=== PATIENT | male | born 1935 | race Caucasian/White ===

== ENCOUNTER 2017-08-10 18:59 | Inpatient (IN) | payer MEDICARE ==
[~2017-08-10] VITALS: Ht 180.3 cm; Wt 59.9 kg
[2017-08-10] MEDS ORDERED: IV NORMAL SALINE 1,000ML 1,000 ML IV SCH (19:40)
[2017-08-10] MEDS ORDERED: IBUPROFEN 600 MG TABLET. PO ONE (19:45)
[2017-08-10] MEDS ORDERED: IV NORMAL SALINE 1,000ML 1,000 ML IV ONE (19:45)
[2017-08-10] MEDS ORDERED: PRED2.5T PO (19:49)
[2017-08-10] MEDS ORDERED: FOSI10TA PO (19:49)
[2017-08-10] MEDS ORDERED: METO25TA4 PO (19:49)
[2017-08-10] MEDS ORDERED: FLUT1DIS3 IH (19:49)
[2017-08-10] MEDS ORDERED: TAMS0.4C2 PO (19:49)
[2017-08-10] MEDS ORDERED: OMEP20CA9 PO (19:49)
[2017-08-10] MEDS ORDERED: SIMV10TA3 PO (19:49)
[2017-08-10] MEDS ORDERED: GABA-585 PO (19:49)
[2017-08-10] MEDS ORDERED: BICA50TA4 PO (19:49)
[2017-08-10] MEDS ORDERED: CETI10TA16 PO (19:49)
[2017-08-10] MEDS ORDERED: VANCOMYCIN PER PHARMACY MC PRN (20:15)
[2017-08-10] MEDS ORDERED: CEFEPIME HCL 1 GM in IV NORMAL SALINE 50ML 50 ML IV ONE (20:30)
[2017-08-10 20:42] LABS: BASO % 2 % (0-3); EOS % 2 % (0-3); HEMATOCRIT 28.2 % (39.0-53.0); HEMOGLOBIN 9.4 g/dL (13.0-17.5); LYMPH # 0.4 x10^3/uL (1.0-4.8); LYMPH % 47 % (24-48); MEAN CORPUSCULAR HEMOGLOBIN 31 pg (25-35); MEAN CORPUSCULAR HGB CONC 33 g/dL (31-37); MEAN CORPUSCULAR VOLUME 94 fL (79-100); MONO # 0.3 x10^3/uL (0.0-1.1); MONO % 34 % (0-9); NEUT # 0.1 x10^3uL (1.8-7.7); NEUT % 16 % (31-73); PLATELET COUNT 160 x10^3/uL (140-400); RED BLOOD COUNT 3.01 x10^6/uL (4.30-5.70); RED CELL DISTRIBUTION WIDTH 16.8 % (11.5-14.5)
[2017-08-10 21:00] LABS: WHITE BLOOD COUNT 0.8 x10^3/uL (4.0-11.0)
[2017-08-10] MEDS ORDERED: VANCOMYCIN 1.5 GM in IV NORMAL SALINE 500ML 500 ML IV ONE (21:00)
[2017-08-10] MEDS ORDERED: IV NORMAL SALINE 50ML 50 ML ONE (21:01)
[2017-08-10] MEDS ORDERED: CEFEPIME HCL 1 GM VIAL ONE (21:01)
[2017-08-10 21:04] LABS: ALBUMIN 2.2 g/dL (3.4-5.0); ALBUMIN/GLOBULIN RATIO 0.6 (1.0-1.7); CALCIUM 8.3 mg/dL (8.5-10.1); CREATININE 1.8 mg/dL (0.7-1.3); GFR 36.4; POTASSIUM 4.5 mmol/L (3.5-5.1); TOTAL BILIRUBIN 0.4 mg/dL (0.2-1.0); TOTAL PROTEIN 5.8 g/dL (6.4-8.2)
[2017-08-10] MEDS ORDERED: ACETAMINOPHEN 325 MG TABLET PO PRN (21:45)
[2017-08-10] MEDS ORDERED: ONDANSETRON PF 4 MG/2 ML VIAL. IV PRN (21:45)
[2017-08-10] MEDS: IV NORMAL SALINE 1,000ML 1,000 ML IV SCH (21:52)
[2017-08-10 22:16] LABS: BILIRUBIN,URINE NEG (NEG); CLARITY,URINE HAZY; COLOR,URINE YELLOW; GLUCOSE,URINE NEG (NEG)
[2017-08-10 22:17] LABS: BACTERIA,URINE MANY /HPF (0-FEW); NITRITE,URINE NEG (NEG); RBC,URINE RARE /HPF (0-2); SQUAMOUS EPITHELIAL CELL,UR FEW /LPF; UROBILINOGEN,URINE 0.2 mg/dL (0.2 mg/dL)
[2017-08-10 22:19] LABS: AMORPHOUS SEDIMENT,UR PRESENT /HPF
--- NOTE | 2017-08-10 22:31 | EKG ---
[address] [address] Test Date: 2017-08-10 Test Time: 19:49:17 Pat Name: SUGEY HERNANDEZ Department: Room: Gender: M Coremaker Bench: MATTHEW : 1935 Requested By: OMAR OCHOA Order Number: [id number] Reading MD: Measurements Intervals [place] Rate: 101 P: 44 MT: 204 QRS: 54 QRSD: 98 T: 46 QT: 310 QTc: 403 Interpretive Statements SINUS TACHYCARDIA PROLONGED MT INTERVAL QRS(T) CONTOUR ABNORMALITY CONSISTENT WITH INFERIOR INFARCT PROBABLY OLD ABNORMAL ECG RI6.01 No previous ECG available for comparison
[2017-08-10 23:32] LABS: % BANDS 2 % (0-9); % LYMPHS 78 % (24-48); % METAS 2 % (0-0); % MONOS 5 % (0-10); % SEGS 13 % (35-66); NUCLEATED RBC 1
[2017-08-10 23:33] LABS: PLT ESTIMATE ADEQUATE (ADEQUATE)
[2017-08-11] VITALS (7 sets, daily range): BP systolic 88–156; BP diastolic 52–86
[2017-08-11] MEDS ORDERED: PRED5TAB PO (01:18)
--- NOTE | 2017-08-11 03:51 | PHYS DOC ---
Past History Past Medical History: Cancer, COPD, GERD, High Cholesterol, Hypertension Past Surgical History: Other Alcohol Use: None Drug Use: None Adult General Chief Complaint Chief Complaint: FEVER HPI HPI He 2-year-old male with a history of hypertension, COPD, high cholesterol and prostate cancer with multiple bony metastases now presents to the emergency department complaining of fever. Patient has had recent chemotherapy. He was told by his oncologist to get evaluated if he ever got a fever. Patient had onset of fevers earlier today with chills. No nausea or vomiting. Denies chest pain or shortness of breath. No productive cough. Denies abdominal pain. Normal bowel and bladder habits. [place] Review of Systems Review of Systems Constitutional: Denies fever or chills [] Eyes: Denies change in visual acuity, redness, or eye pain [] HENT: Denies nasal congestion or sore throat [] Respiratory: Denies cough or shortness of breath [] Cardiovascular: No additional information not addressed in HPI [] GI: Denies abdominal pain, nausea, vomiting, bloody stools or diarrhea [] : Denies dysuria or hematuria [] Musculoskeletal: Denies back pain or joint pain [] Integument: Denies rash or skin lesions [] Neurologic: Denies headache, focal weakness or sensory changes [] Endocrine: Denies polyuria or polydipsia [] All other systems were reviewed and found to be within normal limits, except as documented in this note. Current Medications Current Medications Current Medications Medications (Trade) Dose Ordered Sig/Caridad Start Time Stop Time Status Last Admin Dose Admin Cefepime HCl (Maxipime) 1 gm STK-MED ONCE 08/10/17 21:01 08/10/17 21:02 DC Cefepime HCl 1 gm/ Sodium Chloride 50 ml @ 100 mls/hr 1X ONCE 08/10/17 20:30 08/10/17 20:59 DC 08/10/17 20:30 100 MLS/HR Ibuprofen (Motrin) 600 mg 1X ONCE 08/10/17 19:45 08/10/17 19:46 DC 08/10/17 20:08 600 MG Sodium Chloride 1,000 ml @ 125 mls/hr Q8H 08/10/17 21:34 08/11/17 21:33 08/10/17 21:52 125 MLS/HR Vancomycin HCl (Vanco Per Pharmacy) 1 each PRN DAILY PRN 08/10/17 20:15 08/10/17 23:40 1 EACH Vancomycin HCl 1.5 gm/Sodium Chloride 500 ml @ 250 mls/hr 1X ONCE 08/10/17 21:00 08/10/17 22:59 DC 08/10/17 21:15 250 MLS/HR Allergies Allergies Allergies Coded Allergies Type Severity Reaction Last Updated Verified Penicillins Allergy Unknown 08/10/17 Yes Sulfa (Sulfonamide Antibiotics) Allergy Unknown 08/10/17 Yes morphine Allergy Unknown 08/10/17 Yes Physical Exam Physical Exam Chronically weak appearing elderly gentleman alert communicative cooperative and appropriate in no acute distress. Mucous membranes mildly dry. Supple neck clear lungs regular rate and rhythm mild tachycardia on arrival resolved after IV fluids. Benign abdomen no CVA tenderness normal extremities and a nonfocal neurologic exam Constitutional: Well developed, well nourished, no acute distress, non-toxic appearance. [] HENT: Normocephalic, atraumatic, bilateral external ears normal, oropharynx moist, no oral exudates, nose normal. [] Eyes: PERRLA, EOMI, conjunctiva normal, no discharge. [] Neck: Normal range of motion, no tenderness, supple, no stridor. [] Cardiovascular:Heart rate regular rhythm, no murmur [] Lungs & Thorax: Bilateral breath sounds clear to auscultation [] Abdomen: Bowel sounds normal, soft, no tenderness, no masses, no pulsatile masses. [] Skin: Warm, dry, no erythema, no rash. [] Back: No tenderness, no CVA tenderness. [] Extremities: No tenderness, no cyanosis, no clubbing, ROM intact, no edema. [] Neurologic: Alert and oriented X 3, normal motor function, normal sensory function, no focal deficits noted. [] Psychologic: Affect normal, judgement normal, mood normal. [] Current Patient Data Vital Signs Vital Signs Date Time Temp Pulse Resp B/P (MAP) Pulse Ox O2 Delivery O2 Flow Rate FiO2 08/11/17 00:15 97.8 69 20 99/64 (76) 96 Room Air Lab Results Laboratory Tests Test 08/10/17 19:58 08/10/17 21:11 08/10/17 23:40 08/11/17 02:00 White Blood Count 0.8 x10^3/uL (4.0-11.0) *L Red Blood Count 3.01 x10^6/uL (4.30-5.70) L Hemoglobin 9.4 g/dL (13.0-17.5) L Hematocrit 28.2 % (39.0-53.0) L Mean Corpuscular Volume 94 fL (79-100) Mean Corpuscular Hemoglobin 31 pg (25-35) Mean Corpuscular Hemoglobin Concent 33 g/dL (31-37) Red Cell Distribution Width 16.8 % (11.5-14.5) H Platelet Count 160 x10^3/uL (140-400) Neutrophils (%) (Auto) 16 % (31-73) L Lymphocytes (%) (Auto) 47 % (24-48) Monocytes (%) (Auto) 34 % (0-9) H Eosinophils (%) (Auto) 2 % (0-3) Basophils (%) (Auto) 2 % (0-3) Neutrophils # (Auto) 0.1 x10^3uL (1.8-7.7) L Lymphocytes # (Auto) 0.4 x10^3/uL (1.0-4.8) L Monocytes # (Auto) 0.3 x10^3/uL (0.0-1.1) Eosinophils # (Auto) 0.0 x10^3/uL (0.0-0.7) Basophils # (Auto) 0.0 x10^3/uL (0.0-0.2) Segmented Neutrophils % 13 % (35-66) L Band Neutrophils % 2 % (0-9) Lymphocytes % 78 % (24-48) H Monocytes % 5 % (0-10) Metamyelocytes % 2 % (0-0) H Nucleated Red Blood Cells 1 Platelet Estimate Adequate (ADEQUATE) Sodium Level 136 mmol/L (136-145) Potassium Level 4.5 mmol/L (3.5-5.1) Chloride Level 104 mmol/L (98-107) Carbon Dioxide Level 19 mmol/L (21-32) L Anion Gap 13 (6-14) Blood Urea Nitrogen 43 mg/dL (8-26) H Creatinine 1.8 mg/dL (0.7-1.3) H Estimated GFR (Cockcroft-Gault) 36.4 BUN/Creatinine Ratio 24 (6-20) H Glucose Level 121 mg/dL (70-99) H Lactic Acid Level 1.4 mmol/L (0.4-2.0) 0.5 mmol/L (0.4-2.0) Calcium Level 8.3 mg/dL (8.5-10.1) L Total Bilirubin 0.4 mg/dL (0.2-1.0) Aspartate Amino Transferase (AST) 25 U/L (15-37) Alanine Aminotransferase (ALT) 46 U/L (16-63) Alkaline Phosphatase 118 U/L (46-116) H Troponin I Quantitative < 0.017 ng/mL (0-0.055) < 0.017 ng/mL (0-0.055) Total Protein 5.8 g/dL (6.4-8.2) L Albumin 2.2 g/dL (3.4-5.0) L Albumin/Globulin Ratio 0.6 (1.0-1.7) L Urine Collection Type Unknown Urine Color Yellow Urine Clarity Hazy Urine pH 5.0 Urine Specific [place] 1.020 Urine Protein 30 mg/dl (NEG-TRACE) Urine Glucose (UA) Neg mg/dL (NEG) Urine Ketones (Stick) Neg mg/dL (NEG) Urine Blood Trace (NEG) Urine Nitrite Neg (NEG) Urine Bilirubin Neg (NEG) Urine Urobilinogen Dipstick 0.2 mg/dL (0.2 mg/dL) Urine Leukocyte Esterase Small (NEG) Urine RBC Rare /HPF (0-2) Urine WBC 5-10 /HPF (0-4) Urine Squamous Epithelial Cells Few /LPF Urine Amorphous Sediment Present /HPF Urine Bacteria Many /HPF (0-FEW) Urine Mucus Mod /LPF EKG EKG Normal sinus tachycardia at 101, normal axis, no STEMI, interpreted by me[] Radiology/Procedures Radiology/Procedures Chest x-ray with chronic changes no infiltrate or effusion interpreted by me[] Course & Med Decision Making Course & Med Decision Making Pertinent Labs and Imaging studies reviewed. (See chart for details) Elderly patient on chemotherapy now with fevers. Blood cultures drawn and antibiotic coverage initiated for fever of unknown cause anticipating the possibility of neutropenic fever. No clinical evidence of focal infection. Labs confirm patient with leukopenia and neutropenia. His clinically dehydrated and labs reflect prerenal azotemia with BUN/creatinine 43 and 1.8. IV fluid bolus administered. Case discussed with Dr. Mcnair hospitalist on-call is aware of history and findings and agrees with inpatient admission to his service. [] Dragon Disclaimer Dragon Disclaimer This electronic medical record was generated, in whole or in part, using a voice recognition dictation system. Departure Departure: Impression: Primary Impression: Neutropenic fever Additional Impressions: Dehydration Systemic inflammatory response syndrome (SIRS) Sepsis Leukopenia Disposition: ADMITTED INPATIENT Admitting Physician: Gely Mcnair Condition: STABLE Problem Qualifiers OMAR OCHOA MD August 11, 2017 03:51
[2017-08-11] MEDS: IV NORMAL SALINE 1,000ML 1,000 ML IV SCH ×2 (05:34→08:25)
[2017-08-11 08:07] LABS: BASO % 3 % (0-3); EOS % 3 % (0-3); HEMATOCRIT 31.9 % (39.0-53.0); HEMOGLOBIN 10.7 g/dL (13.0-17.5); LYMPH # 0.3 x10^3/uL (1.0-4.8); LYMPH % 42 % (24-48); MEAN CORPUSCULAR HEMOGLOBIN 32 pg (25-35); MEAN CORPUSCULAR HGB CONC 34 g/dL (31-37); MEAN CORPUSCULAR VOLUME 94 fL (79-100); MONO # 0.2 x10^3/uL (0.0-1.1); MONO % 29 % (0-9); NEUT # 0.1 x10^3uL (1.8-7.7); NEUT % 24 % (31-73); PLATELET COUNT 184 x10^3/uL (140-400); RED BLOOD COUNT 3.39 x10^6/uL (4.30-5.70); RED CELL DISTRIBUTION WIDTH 17.2 % (11.5-14.5)
[2017-08-11 08:10] LABS: WHITE BLOOD COUNT 0.6 x10^3/uL (4.0-11.0)
[2017-08-11 08:11] LABS: ALBUMIN 2.3 g/dL (3.4-5.0); ALBUMIN/GLOBULIN RATIO 0.6 (1.0-1.7); CALCIUM 8.6 mg/dL (8.5-10.1); CREATININE 1.7 mg/dL (0.7-1.3); GFR 38.9; POTASSIUM 4.3 mmol/L (3.5-5.1); TOTAL BILIRUBIN 0.4 mg/dL (0.2-1.0); TOTAL PROTEIN 6.1 g/dL (6.4-8.2)
[2017-08-11] MEDS: CEFEPIME HCL 1 GM in IV NORMAL SALINE 50ML 50 ML IV SCH ×2 (08:22→19:50)
[2017-08-11] MEDS ORDERED: NON FORMULARY ITEM (Fluticasone/Salmeterol (Advair 250-50 Diskus) 1 PUFF) IH SCH (09:00)
[2017-08-11] MEDS ORDERED: LISINOPRIL 10 MG TABLET PO SCH (09:00)
[2017-08-11] MEDS ORDERED: BICALUTAMIDE 50 MG TABLET PO SCH (09:00)
[2017-08-11] MEDS ORDERED: BUDESONIDE 0.5 MG/2 ML NEBU ONE (09:32)
[2017-08-11] MEDS ORDERED: ALBUTEROL SULFATE 2.5 MG/3 ML NEBU. ONE (09:32)
[2017-08-11] MEDS: predniSONE 5 MG TABLET PO SCH (09:43)
[2017-08-11] MEDS: PANTOPRAZOLE 40 MG TABLET. PO SCH (09:43)
[2017-08-11] MEDS: CETIRIZINE HCL 10 MG TABLET PO SCH (09:44)
[2017-08-11] MEDS: METOPROLOL TART IMMED RELEASE 25 MG TABLET PO SCH ×2 (09:44→21:58)
[2017-08-11] MEDS: GABAPENTIN 100 MG CAPSULE. PO SCH ×3 (09:44→21:56)
[2017-08-11] MEDS: ALBUTEROL SULFATE 2.5 MG/3 ML NEBU. NEB SCH ×3 (09:57→20:00)
--- NOTE | 2017-08-11 14:53 | RAD ---
Single view chest 08/10/2017 Clinical indication: Shortness of breath and chest pain. COMPARISON: None. FINDINGS: This is the 1st time the exam is being presented for interpretation. Right subclavian chest port with distal tip overlying the mid SVC level. Cardiac and mediastinal silhouettes are unremarkable. No pleural effusion, pneumothorax or focal consolidation. IMPRESSION: No acute cardiopulmonary abnormality. Electronically signed by: Star Nicholas MD (08/11/2017 2:49 PM) [id number]
--- NOTE | 2017-08-11 18:11 | HP ---
ADMIT DATE: HISTORY OF PRESENT ILLNESS: The patient is an 82-year-old male patient with a past medical history significant for hypertension, COPD, hyperlipidemia and prostate cancer with multiple bony metastases, who presented to the Emergency Room of [facility] yesterday with a complaint of fever. Has had recent chemotherapy and he was told by his oncologist to get evaluated if he ever got the fever. The patient had onset of fever yesterday. He also complained of weakness and hypertension. His daughter is a pharmacist, and she has been adjusting his blood pressure medication, but continued to be low. They contacted his oncologist, Dr. Christ Garcia, who recommended to start him on Neupogen and also hydrocortisone as he was on prednisone before. The patient did have fever up to 101 with chills. No nausea or vomiting. Denied any chest pain or shortness of breath, cough or phlegm. Denied any abdominal pain. Denied any diarrhea or constipation. Denied any dysuria, frequency or hematuria. He is actually visiting from out of the [facility]. He and his are living in [place], coming to visit their daughter. PAST MEDICAL HISTORY: Significant for hypertension, hyperlipidemia, previous episode of TIA, COPD, nephrolithiasis, treated with extracorporeal lithotripsy and also a cystoscopy and retrograde pyelography and stent deployment. Prostate cancer metastasized to the sternum and other bones for which he was on Lupron and Casodex and Taxotere. 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 PAST SURGICAL HISTORY: Significant for tonsillectomy, Whipple's procedure, laminectomy and also has had colonoscopy. ALLERGIES: HE IS ALLERGIC TO PENICILLIN, SULFA DRUGS AND MORPHINE. MEDICATIONS: He is currently on following medications: He is on cetirizine 10 mg once a day, bicalutamide 50 mg once a day, Flomax 0.4 mg at bedtime, simvastatin 10 mg at bedtime, metoprolol tartrate 25 mg twice a day, fosinopril 10 mg once a day, gabapentin 200 mg 3 times a day, fluticasone/Advair Diskus 250/50 one puff twice a day, omeprazole 20 mg once a day and prednisone 5 mg daily. FAMILY HISTORY: He has one sister older, now has dementia and lives with her family in [place]. His father of Alzheimer disease and mother of lung cancer. SOCIAL HISTORY: He is , has 3 daughters. He is an ex-smoker, quit in 1982. 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 REVIEW OF SYSTEMS: The patient denied any blurring of vision, cataract, glaucoma or macular degeneration. Denied any earache, tinnitus or sensorineural deafness. He has bilateral hearing aid. Denied any nosebleeds, stuffy nose or postnasal drip. Denied any sore throat, sore tongue, toothache, hoarseness of voice. Denied any difficulty swallowing. Denied any nausea, vomiting, diarrhea or constipation. Did complain of weight loss of about 35 pounds since last fall. Denied any hematemesis, melena or hematochezia. Denied any dysuria, frequency, hematuria. Denied any chest pain, shortness of breath, orthopnea, paroxysmal nocturnal dyspnea. Denied any cough, phlegm or hemoptysis. He did complain of chills, but no rigors. Did complain of weakness and dizziness. Has hypertension and also fever and generalized weakness. PHYSICAL EXAMINATION: GENERAL: On arrival to the Emergency Room, he was pale, but no jaundice, cyanosis, or thyromegaly. No jugular venous distention. No limb edema. VITAL SIGNS: His heart rate was 118, blood pressure was 96/60, temperature was 97.8, respiratory rate 20, and oxygen saturation was 96%. HEAD, EYES, EARS, NOSE AND THROAT: Showed normocephalic, atraumatic. NECK: Supple. HEART: Showed normal first and second heart sounds with no gallop, rub or murmur. CHEST: Clear to auscultation. No crepitation or rhonchi. ABDOMEN: Distended, soft, nontender. No guarding or rigidity. No organomegaly. All hernial orifices intact. Bowel sounds normal. NEUROLOGIC: He is awake. He is very hard of hearing. Otherwise, all cranial nerves intact. EXTREMITIES: He moves extremities without difficulty. He apparently has multiple pressure ulcers for which he was evaluated by our wound care team. LABORATORY DATA: On arrival showed a total white cell count of 800, hemoglobin 9.4, hematocrit 28, MCV 94 and platelet count of 160,000. His chemistry showed a serum sodium 136, potassium 4.5, chloride 104, bicarbonate 19, anion gap of 13, BUN 43, creatinine 1.8, estimated GFR was 36 mL per minute. His glucose 121, calcium was 8.3. Total bilirubin, AST, ALT were normal. Alkaline phosphatase slightly elevated. Total protein was 5.8, albumin 2.2. His lactic acid was only 1.4. Has 3 sets of cardiac enzymes that were negative. His urinalysis showed the urine was yellow, hazy with a pH of 5, specific gravity of 1.020, urine protein was 30 mg/dL. The urine was negative for glucose and ketones, there was trace of blood, negative for nitrites, small leukocyte esterase, 5-10 wbc's, rare rbc's and many bacteria. His chest x-ray showed, this is the first time the exam is being presented for interpretation, he has right subclavian chest port with distal tip overlying the mid superior vena cava level. Cardiac and mediastinal silhouette are unremarkable. No pleural effusion, pneumothorax or focal consolidation, and basically has no acute cardiopulmonary abnormality. ASSESSMENT AND PLAN: In summary, this is an 82-year-old male patient who presented to the Emergency Room with febrile neutropenia. We started him on IV antibiotic, IV fluid. He is now on vancomycin as well as cefepime and will continue. Has had blood cultures, the results are still pending at time of dictation. His oncologist recommended starting him on Neupogen 300 mcg and also hydrocortisone 100 mg. I will hold his antihypertensive medication for now, continue with IV fluid, and will decide the further management accordingly. OSCAR MOSS MD DR: JANELLE/rene JOB#: [id number] / [id number]
[2017-08-11] MEDS: BUDESONIDE 0.5 MG/2 ML NEBU NEB SCH (21:05)
[2017-08-11] MEDS: TAMSULOSIN 0.4 MG CAP.ER.24H. PO SCH (21:56)
[2017-08-11] MEDS: SIMVASTATIN 10 MG TABLET PO SCH (21:56)
[2017-08-11] MEDS: VANCOMYCIN 1 GM in IV NORMAL SALINE 250ML 250 ML IV SCH (21:56)
[2017-08-11] MEDS: HYDROCORTISONE SOD SUCC/PF 100 MG/2 ML VIAL. IV SCH (22:13)
[2017-08-11] MEDS: TBO-FILGRASTIM 300 MCG/0.5 ML SYRINGE. SQ SCH (22:30)
--- NOTE | 2017-08-12 00:24 | PN ---
DATE: 08/11/2017 SUBJECTIVE: The patient is resting slightly propped up in bed, in no apparent respiratory distress, very hard of hearing, but otherwise he denied any complaint. He said that he is unsteady on his feet. He has lost about 35 pounds since last fall and was diagnosed with metastatic prostate cancer treated initially with Lupron, Casodex, and Taxotere. His last chemotherapy was on 08/01/2017, next scheduled chemotherapy was on 08/22/2017. PHYSICAL EXAMINATION: GENERAL: When I examined him this afternoon, he looked well and was clearly in no apparent respiratory distress, pale, but no jaundice, cyanosis, or thyromegaly. No jugular venous distention. No limb edema. VITAL SIGNS: Heart rate was 63, blood pressure 156/86, temperature was 97.8, respiratory rate was 16, and oxygen saturation was 93%. HEAD, EYES, EARS, NOSE AND THROAT: Normocephalic, atraumatic. NECK: Supple. HEART: Showed no first and second heart sounds. No gallop, rub or murmur. CHEST: Clear to auscultation. No crepitation or rhonchi. ABDOMEN: Distended, soft, and nontender. No guarding or rigidity and no organomegaly. Hernial orifices intact. Bowel sounds normal. NEUROLOGIC: He is hard of hearing. Otherwise, her cranial nerves are intact. He moves extremities without difficulty. He ambulates without assistance or assistive devices. He actually used to walk with a cane, but now he uses a walker and he is steady on his feet that way. His intake over the last 24 hours was incompletely recorded. LABORATORY DATA: This morning showed his serum sodium was 140, potassium 4.3, chloride 109, bicarbonate 21, anion gap of 10, BUN 39, creatinine 1.7, estimated GFR was 39 mL per minute, his glucose 100, calcium was 8.6. Total bilirubin, AST, ALT were normal. Alkaline phosphatase slightly elevated. Total protein was 6.1, albumin was 2.3. His white cell count has dropped down further to 600, hemoglobin was 10.7, hematocrit 31.9, MCV 94, and platelet count of 184,000. ASSESSMENT: 1. Febrile neutropenia. 2. Prostate cancer, status post chemotherapy, the last chemotherapy received on 08/01/2017. 3. Other medical problems include hypertension. The patient normally is hypertensive and he is on metoprolol and lisinopril. Other medical problems include hyperlipidemia, chronic obstructive pulmonary disease. As per his oncologist's recommendation, we will start him on Granix 300 mcg subcutaneous once tonight and hydrocortisone 100 mg intravenous. We will continue with intravenous antibiotic as per pharmacy adjustment given his abnormal kidney function and we will repeat all his lab work tomorrow. I will contact Dr. Vick and decide to see if they have any other recommendation. OSCAR MOSS MD DR: JANELLE/rene JOB#: [id number] / [id number]
[2017-08-12] MEDS: ALBUTEROL SULFATE 2.5 MG/3 ML NEBU. NEB SCH ×4 (05:42→20:00)
[2017-08-12 05:49] VITALS: BP 93/58
[2017-08-12] MEDS: HYDROCORTISONE SOD SUCC/PF 100 MG/2 ML VIAL. IV SCH ×2 (06:40→14:11)
[2017-08-12 06:43] LABS: BASO % 1 % (0-3); EOS % 0 % (0-3); HEMATOCRIT 27.5 % (39.0-53.0); HEMOGLOBIN 9.1 g/dL (13.0-17.5); LYMPH # 0.6 x10^3/uL (1.0-4.8); LYMPH % 20 % (24-48); MEAN CORPUSCULAR HEMOGLOBIN 32 pg (25-35); MEAN CORPUSCULAR HGB CONC 33 g/dL (31-37); MEAN CORPUSCULAR VOLUME 95 fL (79-100); MONO # 0.8 x10^3/uL (0.0-1.1); MONO % 30 % (0-9); NEUT # 1.4 x10^3uL (1.8-7.7); NEUT % 49 % (31-73); PLATELET COUNT 169 x10^3/uL (140-400); RED BLOOD COUNT 2.88 x10^6/uL (4.30-5.70); RED CELL DISTRIBUTION WIDTH 17.4 % (11.5-14.5); WHITE BLOOD COUNT 2.8 x10^3/uL (4.0-11.0)
[2017-08-12 06:55] LABS: ALBUMIN/GLOBULIN RATIO 0.6 (1.0-1.7); CALCIUM 8.8 mg/dL (8.5-10.1); CREATININE 1.6 mg/dL (0.7-1.3); GFR 41.7; POTASSIUM 3.6 mmol/L (3.5-5.1); TOTAL BILIRUBIN 0.3 mg/dL (0.2-1.0); TOTAL PROTEIN 5.6 g/dL (6.4-8.2)
[2017-08-12] MEDS: IV NORMAL SALINE 1,000ML 1,000 ML IV SCH ×2 (08:32→17:04)
[2017-08-12] MEDS: CEFEPIME HCL 1 GM in IV NORMAL SALINE 50ML 50 ML IV SCH ×2 (08:32→21:13)
[2017-08-12] MEDS: CETIRIZINE HCL 10 MG TABLET PO SCH (08:35)
[2017-08-12] MEDS: GABAPENTIN 100 MG CAPSULE. PO SCH ×3 (08:35→21:16)
[2017-08-12] MEDS: PANTOPRAZOLE 40 MG TABLET. PO SCH (08:36)
[2017-08-12] MEDS: predniSONE 5 MG TABLET PO SCH (08:36)
[2017-08-12 09:38] LABS: % BANDS 12 % (0-9); % BASOS 2 % (0-3); % LYMPHS 31 % (24-48); % METAS 5 % (0-0); % MONOS 12 % (0-10); % MYELOS 3 % (0-0); % OTHERS 21 % (0-0); % PROS 1 % (0-0); % SEGS 12 % (35-66); NUCLEATED RBC 2
[2017-08-12 09:39] LABS: PLT ESTIMATE ADEQUATE (ADEQUATE)
[2017-08-12 09:40] LABS: ANISOCYTOSIS SLIGHT; HYPOCHROMIA SLIGHT; OVALOCYTES OCC; POLYCHROMASIA SLIGHT; SCHISTOCYTES OCC; TOXIC GRANULATION MOD
[2017-08-12] MEDS: BUDESONIDE 0.5 MG/2 ML NEBU NEB SCH ×2 (10:37→20:00)
[2017-08-12 11:11] VITALS: BP 103/66
[2017-08-12] MEDS: METOPROLOL TART IMMED RELEASE 25 MG TABLET PO SCH ×2 (13:24→20:19)
[2017-08-12 15:14] VITALS: BP 105/69
--- NOTE | 2017-08-12 18:06 | OP ---
DATE OF SURGERY: 08/12/2017 INDICATIONS: The patient is an 82-year-old male patient [place]. He developed a fever and basically weakness and hypotension. He came to the Emergency Room, was found to be febrile and neutropenic. We pancultured him and started him on cefepime and vancomycin and also started yesterday on Granix and hydrocortisone, sodium succinate, and he did very well. He is feeling much better today. He is afebrile, hemodynamically stable, although his blood pressure still continued to be borderline. His white cell count has risen up from 600 to 2800 and so far, all his cultures are negative. When I examined him this afternoon, he was slightly pale, but no jaundice, cyanosis or thyromegaly. No jugular venous distension. No lower limb edema. PHYSICAL EXAMINATION: VITAL SIGNS: His heart rate was 62, blood pressure was 103/66, temperature was 97.4, respiratory rate was 24, and oxygen saturation was 100% on room air. HEAD, EARS, NOSE AND THROAT Normocephalic, atraumatic. NECK: Supple. HEART: Showed normal first and second sounds. No gallop, rub or murmur. CHEST: Clear to auscultation. No crepitation or rhonchi. No guarding or rigidity. No organomegaly. Hernial orifice intact. Bowel sounds normal. NEUROLOGIC: He was awake, alert, responding appropriately. Cranial nerves intact. He moves extremities without difficulty. He managed to walk with a walker without any difficulty. His intake was 3665 and output was recorded. LABORATORY DATA: His lab work showed a white cell count of 2800, hemoglobin 9, hematocrit 27, MCV 95, and platelet count of 169,000. His chemistry showed a serum sodium 143, potassium 3.6, chloride 112, bicarbonate 20, anion gap of 11, BUN 34, creatinine 1.6, estimated GFR was 42 mL per minute, his glucose 164, calcium was 8.8. Total bilirubin, AST, ALT, alkaline phosphatase were normal. Total protein was 5.6, albumin was 2. IMPRESSION: 1. Febrile neutropenia, resolved. The patient's white cell count is up from 600 to 2800. 2. Prostate cancer, status post chemotherapy; last chemotherapy received on 08/01/2016. He is scheduled for the next treatment on 08/22/2017. Other medical problems include, A). Hypertension; however, the patient is borderline hypertensive. He is normally on metoprolol and lisinopril. B). Hyperlipidemia. C). Chronic obstructive pulmonary disease. The patient was started on Granix 300 mcg subcutaneously daily and hydrocortisone 100 mg once a day intravenously. We will continue with intravenous antibiotic adjusted by the pharmacist according to his kidney function. I will repeat his labs tomorrow and if he remains stable, he can be discharged back home to follow with his oncologist. OSCAR MOSS MD DR: JANELLE/rene JOB#: [id number] / [id number]
[2017-08-12 19:00] VITALS: BP 95/50
[2017-08-12] MEDS: VANCOMYCIN 1 GM in IV NORMAL SALINE 250ML 250 ML IV SCH (21:13)
[2017-08-12] MEDS: TBO-FILGRASTIM 300 MCG/0.5 ML SYRINGE. SQ SCH (21:16)
[2017-08-12] MEDS: TAMSULOSIN 0.4 MG CAP.ER.24H. PO SCH (21:16)
[2017-08-12] MEDS: SIMVASTATIN 10 MG TABLET PO SCH (21:16)
[2017-08-12 21:41] LABS: VANC TR 13.7 mcg/mL (10.0-20.0)
[2017-08-13] MEDS: HYDROCORTISONE SOD SUCC/PF 100 MG/2 ML VIAL. IV SCH ×2 (02:28→14:00)
[2017-08-13] MEDS: ALBUTEROL SULFATE 2.5 MG/3 ML NEBU. NEB SCH ×2 (05:00→09:24)
[2017-08-13] MEDS: IV NORMAL SALINE 1,000ML 1,000 ML IV SCH (05:05)
[2017-08-13 05:20] VITALS: BP 143/73
[2017-08-13 07:55] LABS: ALBUMIN 1.9 g/dL (3.4-5.0); ALBUMIN/GLOBULIN RATIO 0.5 (1.0-1.7); CALCIUM 8.8 mg/dL (8.5-10.1); CREATININE 1.9 mg/dL (0.7-1.3); GFR 34.2; TOTAL BILIRUBIN 0.3 mg/dL (0.2-1.0); TOTAL PROTEIN 5.4 g/dL (6.4-8.2)
[2017-08-13] MEDS: CEFEPIME HCL 1 GM in IV NORMAL SALINE 50ML 50 ML IV SCH (07:59)
[2017-08-13] MEDS: predniSONE 5 MG TABLET PO SCH (08:00)
[2017-08-13] MEDS: BUDESONIDE 0.5 MG/2 ML NEBU NEB SCH (08:00)
[2017-08-13] MEDS: CETIRIZINE HCL 10 MG TABLET PO SCH (08:00)
[2017-08-13] MEDS: PANTOPRAZOLE 40 MG TABLET. PO SCH (08:00)
[2017-08-13] MEDS: METOPROLOL TART IMMED RELEASE 25 MG TABLET PO SCH (08:00)
[2017-08-13] MEDS: GABAPENTIN 100 MG CAPSULE. PO SCH ×2 (08:00→14:34)
[2017-08-13 08:34] LABS: HEMATOCRIT 26.7 % (39.0-53.0); HEMOGLOBIN 8.6 g/dL (13.0-17.5); RED BLOOD COUNT 2.83 x10^6/uL (4.30-5.70); WHITE BLOOD COUNT 20.8 x10^3/uL (4.0-11.0)
[2017-08-13 11:08] VITALS: BP 128/76
[2017-08-13] MEDS ORDERED: POTASSIUM CHLORIDE 20 MEQ TABLET.ER. PO ONE (14:30)
[2017-08-13] MEDS ORDERED: DOXY100C14 PO (14:39)
--- NOTE | 2017-08-14 00:57 | DS ---
DATE OF DISCHARGE: 08/13/2017 HISTORY OF PRESENT ILLNESS: There was an 82-year-old male patient who is known to have metastatic breast cancer, who resides in [place] and who basically was visiting his daughter here and came to the Emergency Room with a complaint of fever with chills. No nausea, no vomiting. He has also denied any other complaint, was found to have febrile neutropenia with a white cell count of only 800. He was started on cefepime and IV vancomycin, he was put in isolation and he was pancultured. We contacted his oncologist and he was treated with Granix 300 mcg subcutaneous once a day. He received two doses of that, and also started on hydrocortisone, and sodium succinate 100 mg 3 times a day. He was found also to have multiple pressure ulcers including 3 pressure ulcers to the sacral area and stage II pressure ulcer to the left buttock, two small open area and for which he was seen by the wound care team. He did very well. His white cell count has responded beautifully to Granix and today, his white cell count is up to 20,800. Unfortunately, his serum creatinine has crept up from 1.7, down to 1.6 and then to 1.9, has also hypokalemia for which we gave him 40 mEq of potassium chloride. He will be discharged home. His daughter and will be driving and take him back home to [place], and will be discharged home with home health and that was arranged by his daughter. PHYSICAL EXAMINATION: GENERAL: When I saw him today, he looked well and was clearly in no apparent respiratory distress, pale, no jaundice, cyanosis, or thyromegaly. No jugular venous distension. No lower limb edema. VITAL SIGNS: His heart rate was 84, blood pressure 128/76, temperature was 97.4, respiratory rate 20, and oxygen saturation was 93%. HEAD, EYES, EARS, NOSE AND THROAT: Showed normocephalic, atraumatic. NECK: Supple. HEART: Showed normal first and second heart sounds with no gallop, rub or murmur. CHEST: Clear to auscultation. No crepitation or rhonchi. ABDOMEN: Distended, soft, and nontender. NEUROLOGIC: He was awake, alert, responding appropriately. Cranial nerves intact. He moves extremities without difficulty, ambulates without assistance or assistive devices. His actually walks with a walker, but he can walk with a cane only. His intake over the last 24 hours was 3000, no output was recorded. His lab work this morning showed a serum sodium of 145, potassium 3, chloride 113, bicarbonate 18, anion gap of 14, BUN of 35, creatinine 1.9, estimated GFR was 34 mL per minute. His glucose was 166, calcium was 8.8. Total bilirubin, AST, ALT, alkaline phosphatase were normal. Total protein was 5.4, albumin was 1.9. Urinalysis showed that he has 5 to 10 wbc's and many bacteria. His toxicology screen showed vancomycin trough level was 13.7. His urine culture has grown more than 100,000 colony forming of Escherichia coli sensitive to multiple antibiotics. All of them are to be given parenterally except trimethoprim and tetracycline. DISCHARGE MEDICATIONS: The patient was discharged home to continue on following medications: Doxycycline 100 mg twice a day for 7 days, Casodex 50 mg daily, cetirizine 10 mg once a day, Advair Diskus 250/50 twice a day. We will hold his lisinopril given his impaired kidney function, gabapentin 100 mg twice a day, metoprolol 12.5 mg twice a day, omeprazole 20 mg once a day, prednisone 5 mg daily, simvastatin 10 mg daily, and tamsulosin 0.4 mg at bedtime. FINAL DISCHARGE DIAGNOSES: 1. Febrile neutropenia, resolved. 2. Metastatic prostate cancer. 3. Urinary tract infection with growth of Escherichia coli, sensitive to doxycycline. 4. Chronic obstructive pulmonary disease. 5. Hypertension. 6. Hyperlipidemia. 7. Benign prostatic hypertrophy. OSCAR MOSS MD DR: JANELLE/rene JOB#: [id number] / [id number]
== END 2017-08-13 15:17 | disposition home health service (06) | DRG 871 ==
LOC: ER 18:59 → 1 SOUTH 21:34
PROVIDERS: ADMIT Internal Medicine; ATTEND Internal Medicine
DX: A41.9 Sepsis, unspecified organism (principal); L89.153 Pressure ulcer of sacral region, stage 3; L89.322 Pressure ulcer of left buttock, stage 2; C79.51 Secondary malignant neoplasm of bone; E86.0 Dehydration; D70.9 Neutropenia, unspecified; N39.0 Urinary tract infection, site not specified; C50.929 Malignant neoplasm of unspecified site of unspecified male breast; C61 Malignant neoplasm of prostate; B96.20 Unspecified Escherichia coli [E. coli] as the cause of diseases classified elsewhere; J44.9 Chronic obstructive pulmonary disease, unspecified; E78.00 Pure hypercholesterolemia, unspecified; E78.5 Hyperlipidemia, unspecified; Z88.0 Allergy status to penicillin; Z88.2 Allergy status to sulfonamides; E87.6 Hypokalemia; I10 Essential (primary) hypertension; K21.9 Gastro-esophageal reflux disease without esophagitis; N40.0 Benign prostatic hyperplasia without lower urinary tract symptoms; R50.81 Fever presenting with conditions classified elsewhere; Z80.1 Family history of malignant neoplasm of trachea, bronchus and lung; Z82.0 Family history of epilepsy and other diseases of the nervous system; Z85.05 Personal history of malignant neoplasm of liver; Z92.3 Personal history of irradiation; Z92.21 Personal history of antineoplastic chemotherapy; Z87.891 Personal history of nicotine dependence; Z87.442 Personal history of urinary calculi; Z85.46 Personal history of malignant neoplasm of prostate; Z86.73 Personal history of transient ischemic attack (TIA), and cerebral infarction without residual deficits; Z88.5 Allergy status to narcotic agent; Z79.899 Other long term (current) drug therapy; Z81.8 Family history of other mental and behavioral disorders
CPT/HCPCS: 36415; 71045; 80053; 80202; 81001; 83605; 84484; 85007; 85025; 85027; 87040; 87086; 93005; 94640; 96365; 96368; J0692; J3370; J7040; J7050; J7512; J7613; J7626; 97116; 99285-25; J1442; J7030

== ENCOUNTER → 2017-12-21 | Outpatient (CLI) | payer MEDICARE ==
[~2017-12-21] MED LIST: BICA50TA47 PO; CETI10TA16 PO; DOXY100C14 PO; FLUT1DIS3 IH; FOSI10TA PO; GABA-585 PO; METO25TA4 PO; OMEP20CA9 PO; PRED2.5T PO; PRED5TAB PO; SIMV10TA3 PO; TAMS0.4C2 PO
--- NOTE | 2017-12-21 16:59 | RAD ---
AP pelvis, 12/21/2017: HISTORY: Pelvic and low back pain, prostate cancer No pelvic fracture or destructive bony lesion is seen. The hip joint spaces are well-maintained with only mild marginal spurring. IMPRESSION: No acute bony abnormality is detected. Electronically signed by: Henry Knott MD (12/21/2017 4:55 PM) [facility]
--- NOTE | 2017-12-21 17:00 | RAD ---
Lumbar spine, 3 views, 12/21/2017: HISTORY: Low back pain, prostate cancer, metastatic disease There is a mild right convexity lumbar scoliosis. An old laminectomy defect is present in the lower lumbar spine. There is severe disc space narrowing at L3-4, L4-5 and L5-S1 with vacuum disc phenomena and marginal spurring. There are additional moderate spurs in the upper lumbar spine. Moderate facet joint arthropathy is present at multiple levels. No fracture or destructive bony lesion is seen. Aortoiliac calcific plaquing is present. IMPRESSION: 1. Lumbar scoliosis. 2. Severe multilevel degenerative change. 3. Previous lower lumbar laminectomy. Electronically signed by: Henry Knott MD (12/21/2017 4:57 PM) [facility]
== END | disposition home or self-care (01) ==
LOC: RAD 16:33
PROVIDERS: ATTEND Family Medicine
DX: M41.86 Other forms of scoliosis, lumbar region (principal); M48.061 Spinal stenosis, lumbar region without neurogenic claudication; R10.2 Pelvic and perineal pain; Z85.89 Personal history of malignant neoplasm of other organs and systems
CPT/HCPCS: 72100; 72170

== ENCOUNTER 2018-03-06 14:38 | Emergency (ER) | payer MEDICARE ==
[~2018-03-06] VITALS: Ht 180.3 cm; Wt 61.2 kg
[2018-03-06] MEDS ORDERED: IV NORMAL SALINE 1,000ML 1,000 ML IV ONE (15:15)
--- NOTE | 2018-03-06 15:18 | PHYS DOC ---
Past History Past Medical History: Cancer, COPD, GERD, High Cholesterol, Hypertension Past Surgical History: Other Alcohol Use: None Drug Use: None Adult General Chief Complaint Chief Complaint: BLOODY STOOL HPI HPI 83-year-old male presents with 36-48 hours of melena stool. Patient states it is a dark purplish color. He has not had a normal stool in 2 days. He denies any increase in movements. He has had a peptic ulcer in the past. The patient is normally on omeprazole but had to stop taking it due to interactions with his current prostate cancer medication. He did take Zantac this morning. Patient denies nausea, vomiting, dizziness, shortness of breath, headache. He's been eating and drinking normally. He denies fever or chills. Review of Systems Review of Systems Constitutional: Denies fever or chills [] Eyes: Denies change in visual acuity, redness, or eye pain [] HENT: Denies nasal congestion or sore throat [] Respiratory: Denies cough or shortness of breath [] Cardiovascular: No additional information not addressed in HPI [] GI: Denies abdominal pain, nausea, vomiting, bloody stools or diarrhea [] : Denies dysuria or hematuria, melena stools [] Musculoskeletal: Denies back pain or joint pain [] Integument: Denies rash or skin lesions [] Neurologic: Denies headache, focal weakness or sensory changes [] Endocrine: Denies polyuria or polydipsia [] All other systems were reviewed and found to be within normal limits, except as documented in this note. Current Medications Current Medications Current Medications Medications (Trade) Dose Ordered Sig/[facility] Start Time Stop Time Status Last Admin Dose Admin Sodium Chloride 1,000 ml @ 1,000 mls/hr 1X ONCE 03/06/18 15:15 03/06/18 16:14 Allergies Allergies Allergies Coded Allergies Type Severity Reaction Last Updated Verified Penicillins Allergy Intermediate 08/13/17 Yes Sulfa (Sulfonamide Antibiotics) Allergy Intermediate 08/13/17 Yes morphine Allergy Intermediate 08/13/17 Yes Physical Exam Physical Exam Constitutional: Well developed, well nourished, no acute distress, non-toxic appearance. [] HENT: Normocephalic, atraumatic, bilateral external ears normal, oropharynx moist, no oral exudates, nose normal. [] Eyes: PERRLA, EOMI, conjunctiva normal, no discharge. [] Neck: Normal range of motion, no tenderness, supple, no stridor. [] Cardiovascular:Heart rate regular rhythm, no murmur [] Lungs & Thorax: Bilateral breath sounds clear to auscultation but with prolonged expiration [] Abdomen: Bowel sounds normal, soft, no tenderness, no masses, no pulsatile masses. [] Skin: Warm, dry, no erythema, no rash. [] Back: No tenderness, no CVA tenderness. [] Extremities: No tenderness, no cyanosis, no clubbing, ROM intact, no edema. [] Neurologic: Alert and oriented X 3, normal motor function, normal sensory function, no focal deficits noted. [] Psychologic: Affect normal, judgement normal, mood normal. Rectal: normal external exam, no obvious blood, enlarged prostate[] Current Patient Data Vital Signs Vital Signs Date Time Temp Pulse Resp B/P (MAP) Pulse Ox O2 Delivery O2 Flow Rate FiO2 03/06/18 14:59 97.6 84 18 97 Room Air EKG EKG [] Radiology/Procedures Radiology/Procedures [] Course & Med Decision Making Course & Med Decision Making Pertinent Labs and Imaging studies reviewed. (See chart for details) The patient's labs are remarkable for a low hemoglobin. Review the patient's chart shows that this is one of the last hemoglobin numbers he's had in the last year. Patient continues to be asymptomatic. His Hemoccult was positive. I do not have any gross bleeding on rectal exam. I will give 40 mg Protonix IV. Due to the potential interaction with his chemotherapy, I will only give him a single dose. They will discuss proton pump inhibitor with the oncologist. I offered the patient the option of being admitted to the hospital for further observation or going home. He has elected to go home. He has reliable care at home and will return if he develops new or worsening symptoms. He is stable for discharge at this time [] Dragon Disclaimer Dragon Disclaimer This electronic medical record was generated, in whole or in part, using a voice recognition dictation system. Departure Departure: Referrals: JANE MALLOY MD (PCP) LORIE BALL DO Mar 06, 2018 15:18
[2018-03-06 16:16] LABS: BASO % 1 % (0-3); EOS % 0 % (0-3); HEMOGLOBIN 10.6 g/dL (13.0-17.5); LYMPH # 0.3 x10^3/uL (1.0-4.8); LYMPH % 5 % (24-48); MEAN CORPUSCULAR HEMOGLOBIN 33 pg (25-35); MEAN CORPUSCULAR HGB CONC 33 g/dL (31-37); MEAN CORPUSCULAR VOLUME 101 fL (79-100); MONO # 0.4 x10^3/uL (0.0-1.1); MONO % 7 % (0-9); NEUT # 5.3 x10^3uL (1.8-7.7); NEUT % 88 % (31-73); PLATELET COUNT 202 x10^3/uL (140-400); RED BLOOD COUNT 3.17 x10^6/uL (4.30-5.70); RED CELL DISTRIBUTION WIDTH 16.2 % (11.5-14.5); WHITE BLOOD COUNT 6.1 x10^3/uL (4.0-11.0)
[2018-03-06 16:31] LABS: ALBUMIN 2.6 g/dL (3.4-5.0); ALBUMIN/GLOBULIN RATIO 0.9 (1.0-1.7); CALCIUM 7.6 mg/dL (8.5-10.1); CREATININE 1.2 mg/dL (0.7-1.3); POTASSIUM 3.6 mmol/L (3.5-5.1); TOTAL BILIRUBIN 0.3 mg/dL (0.2-1.0); TOTAL PROTEIN 5.6 g/dL (6.4-8.2)
[2018-03-06 16:35] LABS: FECAL OB PT POSITIVE (NEG)
[2018-03-06] MEDS ORDERED: PANTOPRAZOLE IV 40 MG VIAL. IVP ONE (17:00)
[2018-03-06 17:30] VITALS: BP 153/96
== END 2018-03-06 17:33 | disposition home or self-care (01) ==
LOC: ER 14:38
DX: K92.1 Melena (principal); D64.9 Anemia, unspecified; J44.9 Chronic obstructive pulmonary disease, unspecified; K21.9 Gastro-esophageal reflux disease without esophagitis; E78.00 Pure hypercholesterolemia, unspecified; I10 Essential (primary) hypertension; Z88.0 Allergy status to penicillin; Z88.2 Allergy status to sulfonamides; Z88.5 Allergy status to narcotic agent
CPT/HCPCS: 36415; 80053; 82274; 85025; 96374; 99283; C9113; J7030

== ENCOUNTER → 2018-06-28 | Outpatient (CLI) | payer MEDICARE ==
[~2018-06-28] MED LIST changes: +CALC-157 PO; +CHOL2000 PO; +DENO120V SQ; +FURO-69 PO; +LEUP22.52 IM; +MULT1TAB52 PO
[2018-06-28 13:49] LABS: BASO % 1 % (0-3); EOS # 0.1 x10^3/uL (0.0-0.7); EOS % 1 % (0-3); HEMATOCRIT 36.2 % (39.0-53.0); HEMOGLOBIN 11.7 g/dL (13.0-17.5); LYMPH # 0.4 x10^3/uL (1.0-4.8); LYMPH % 5 % (24-48); MEAN CORPUSCULAR HEMOGLOBIN 32 pg (25-35); MEAN CORPUSCULAR HGB CONC 32 g/dL (31-37); MEAN CORPUSCULAR VOLUME 98 fL (79-100); MONO # 0.7 x10^3/uL (0.0-1.1); MONO % 11 % (0-9); NEUT # 5.5 x10^3uL (1.8-7.7); NEUT % 82 % (31-73); PLATELET COUNT 212 x10^3/uL (140-400); RED BLOOD COUNT 3.69 x10^6/uL (4.30-5.70); RED CELL DISTRIBUTION WIDTH 16.4 % (11.5-14.5); WHITE BLOOD COUNT 6.7 x10^3/uL (4.0-11.0)
[2018-06-28 14:00] LABS: ALBUMIN 2.6 g/dL (3.4-5.0); ALBUMIN/GLOBULIN RATIO 0.8 (1.0-1.7); CALCIUM 8.3 mg/dL (8.5-10.1); CREATININE 1.1 mg/dL (0.7-1.3); GFR 64.1; TOTAL BILIRUBIN 0.2 mg/dL (0.2-1.0); TOTAL PROTEIN 5.7 g/dL (6.4-8.2)
[2018-06-29 04:08] LABS: TESTOSTERONE TOTAL <3 ng/dL (264-916)
== END | disposition home or self-care (01) ==
LOC: LAB 13:16
PROVIDERS: ATTEND Internal Medicine Hematology & Oncology
DX: C61 Malignant neoplasm of prostate (principal); C79.51 Secondary malignant neoplasm of bone; I10 Essential (primary) hypertension; J44.9 Chronic obstructive pulmonary disease, unspecified
CPT/HCPCS: 36415; 80053; 84153; 84403; 85025; G0103

== ENCOUNTER → 2018-07-26 | Outpatient (CLI) | payer MEDICARE ==
[2018-07-26 15:23] LABS: BASO % 1 % (0-3); EOS # 0.2 x10^3/uL (0.0-0.7); EOS % 3 % (0-3); HEMATOCRIT 33.8 % (39.0-53.0); HEMOGLOBIN 10.8 g/dL (13.0-17.5); LYMPH # 0.6 x10^3/uL (1.0-4.8); LYMPH % 13 % (24-48); MEAN CORPUSCULAR HEMOGLOBIN 31 pg (25-35); MEAN CORPUSCULAR HGB CONC 32 g/dL (31-37); MEAN CORPUSCULAR VOLUME 97 fL (79-100); MONO # 0.9 x10^3/uL (0.0-1.1); MONO % 18 % (0-9); NEUT # 3.1 x10^3uL (1.8-7.7); NEUT % 65 % (31-73); PLATELET COUNT 272 x10^3/uL (140-400); RED BLOOD COUNT 3.48 x10^6/uL (4.30-5.70); RED CELL DISTRIBUTION WIDTH 16.6 % (11.5-14.5); WHITE BLOOD COUNT 4.8 x10^3/uL (4.0-11.0)
[2018-07-26 15:31] LABS: ALBUMIN 2.3 g/dL (3.4-5.0); ALBUMIN/GLOBULIN RATIO 0.7 (1.0-1.7); CREATININE 1.3 mg/dL (0.7-1.3); GFR 52.9; POTASSIUM 4.2 mmol/L (3.5-5.1); TOTAL BILIRUBIN 0.2 mg/dL (0.2-1.0); TOTAL PROTEIN 5.8 g/dL (6.4-8.2)
[2018-07-27 03:06] LABS: TESTOSTERONE TOTAL <3 ng/dL (264-916)
== END | disposition home or self-care (01) ==
LOC: LAB 13:57
PROVIDERS: ATTEND Internal Medicine Hematology & Oncology
DX: C61 Malignant neoplasm of prostate (principal); C79.51 Secondary malignant neoplasm of bone
CPT/HCPCS: 36415; 80053; 84153; 84403; 85025; G0103

== ENCOUNTER 2018-07-29 10:53 | Emergency (ER) | payer MEDICARE ==
[~2018-07-29] VITALS: Ht 177.8 cm; Wt 57.6 kg
[2018-07-29 10:53] VITALS: BP 137/87
[~2018-07-29 10:53] MED LIST changes: -CALC-157 PO; -CHOL2000 PO; -DENO120V SQ; -FURO-69 PO; -LEUP22.52 IM; -MULT1TAB52 PO
--- NOTE | 2018-07-29 12:09 | PHYS DOC ---
Past History Past Medical History: Cancer, COPD, GERD, High Cholesterol, Hypertension Past Surgical History: Other Alcohol Use: None Drug Use: None Adult General Chief Complaint Chief Complaint: ABDOMINAL PAIN [facility] HPI 83-year-old male presents with upper abdominal pain. The patient states that this pain started yesterday. He has known metastatic prostate cancer. It has metastasized to the bone, but this is usually pain in his back. The upper abdominal pain is a mild to moderate cramping pain. It is constant. The patient did get radiology 23 injection 22 days ago. He did not have issues after that except for fatigue. Patient denies fever home. He denies dysuria or urinary frequency.He denies overt chest pain or shortness of breath. He has had decreased appetite. Review of Systems Review of Systems Constitutional: Denies fever or chills [] Eyes: Denies change in visual acuity, redness, or eye pain [] HENT: Denies nasal congestion or sore throat [] Respiratory: Denies cough or shortness of breath [] Cardiovascular: No additional information not addressed in HPI [] GI: Epigastric abdominal pain. Denies nausea, vomiting, bloody stools or diarrhea [] : Denies dysuria or hematuria [] Musculoskeletal: Denies back pain or joint pain [] Integument: Denies rash or skin lesions [] Neurologic: Denies headache, focal weakness or sensory changes [] Endocrine: Denies polyuria or polydipsia [] All other systems were reviewed and found to be within normal limits, except as documented in this note. Allergies Allergies Allergies Coded Allergies Type Severity Reaction Last Updated Verified Penicillins Allergy Intermediate 08/13/17 Yes Sulfa (Sulfonamide Antibiotics) Allergy Intermediate 08/13/17 Yes morphine Allergy Intermediate 08/13/17 Yes Physical Exam Physical Exam Constitutional: Well developed, well nourished, thin, no acute distress, non- toxic appearance. [] HENT: Normocephalic, atraumatic, bilateral external ears normal, oropharynx dry , no oral exudates, nose normal. [] Eyes: PERRLA, EOMI, conjunctiva normal, no discharge. [] Neck: Normal range of motion, no tenderness, supple, no stridor. [] Cardiovascular:Heart rate regular rhythm, no murmur [] Lungs & Thorax: Bilateral breath sounds clear to auscultation [] Abdomen: Bowel sounds normal, soft, no tenderness, no masses, no pulsatile masses. [] Skin: Warm, dry, no erythema, no rash. [] Back: No tenderness, no CVA tenderness. [] Extremities: No tenderness, no cyanosis, no clubbing, ROM intact, no edema. [] Neurologic: Alert and oriented X 3, normal motor function, normal sensory function, no focal deficits noted. [] Psychologic: Affect normal, judgement normal, mood normal. [] EKG EKG [] Radiology/Procedures Radiology/Procedures [] Impressions: Exam performed: One view chest. Indication: Short of air, weakness Date of Service: 07/29/2018 12:34 PM Comparison: None available. Single AP upright portable view chest findings: Cardiomediastinal silhouette is within limits of normal. No acute infiltrates, effusion or pneumothorax is detected. Both lungs are hyperinflated suggesting emphysematous changes. There is a right-sided Port-A-Cath in place. The bony structures are normal. Impression: Stable chronic changes. No acute cardiac pulmonary process identified. Electronically signed by: Aaliyah Solorio MD (07/29/2018 12:56 PM) [facility] [place] DICTATED AND SIGNED BY: AALIYAH SOLORIO MD DATE: 07/29/18 1256 CC: JANE MALLOY MD; LORIE BALL DO ~ Exam performed: CT scan of the abdomen and pelvis with contrast Clinical Indication: Upper abdominal pain, decreased appetite, history of prostate cancer, but of surgery 2007, cholecystectomy and appendectomy Date of Service: 07/29/2018 comparison: CT abdomen and pelvis from 11/11/2014 Technique: Contiguous helical acquisitions are obtained from the lung bases to the pelvis during intravenous administration of [75 cc of Omnipaque 300.] Sagittal and coronal reformatted images were obtained and reviewed. CT abdomen findings: Emphysematous changes are seen in both lung bases. Chronic interstitial markings are seen mainly involving the proximal aspects of both lungs. Heart size is normal. The liver and spleen appears unremarkable. Cholecystectomy and partial pancreatectomy secondary to a both surgery. Both adrenal glands are somewhat prominent and bilateral kidneys appear normal with symmetric excretion of contrast via both kidneys. 1.8 cm probable cyst in the right superior renal pole. The small bowel loops appear nondilated and unremarkable. Aorta is normal in caliber demonstrating diffuse atheromatous calcification. There is no retroperitoneal lymphadenopathy or mass lesions. No bowel related inflammatory stranding is noted. The urinary bladder is well distended and normal . Interrogation of bone windows demonstrates diffuse sclerotic changes involving the lower lumbar spine and patchy lytic and sclerotic abnormalities in the pelvic bones, which given the history of prostate cancer or concerning for bony metastasis. Sagittal and coronal reformatted images were obtained and reviewed which demonstrate no additional findings. Impression abdomen and pelvis : 1. No acute intra-abdominal or pelvic process is detected. 2. Probable right renal cyst. 3. Emphysematous lungs with chronic interstitial changes. 4. Bony normalities consistent with metastatic process. Evaluation with nuclear medicine whole body bone scan may be obtained to evaluate additional lesions. PQRS Compliance Statement: One or more of the following individualized dose reduction techniques were utilized for this examination: 1. Automated exposure control 2. Adjustment of the mA and/or kV according to patient size 3. Use of iterative reconstruction technique Electronically signed by: Aaliyah Solorio MD (07/29/2018 1:43 PM) [facility] [place] DICTATED AND SIGNED BY: AALIYAH SOLORIO MD DATE: 07/29/18 0061 CC: JANE MALLOY MD; LORIE BALL DO ~ Course & Med Decision Making Course & Med Decision Making Pertinent Labs and Imaging studies reviewed. (See chart for details) The patient's chest x-ray and CT of the abdomen and pelvis are negative for acute findings. There are old findings. See official read for more details. I do not see a definitive reason for the patient's abdominal pain. His labs are remarkable for an anemia that does not require transfusion. He also slight elevation of liver enzymes. If this pain continues, he can follow-up with his oncologist and primary physician. He is stable for discharge at this time. [] Dragon Disclaimer Dragon Disclaimer This electronic medical record was generated, in whole or in part, using a voice recognition dictation system. Departure Departure: Impression: Primary Impression: Metastatic malignant neoplasm to prostate Additional Impression: Epigastric abdominal pain Disposition: HOME, SELF-CARE Condition: STABLE Referrals: JANE MALLOY MD (PCP) Patient Instructions: Abdominal Pain (Nonspecific) Problem Qualifiers LORIE BALL DO Jul 29, 2018 12:09
[2018-07-29 12:12] LABS: BACTERIA,URINE 0 /HPF (0-FEW); BILIRUBIN,URINE NEG (NEG); CLARITY,URINE CLEAR; COLOR,URINE YELLOW; GLUCOSE,URINE NEG (NEG); NITRITE,URINE NEG (NEG); RBC,URINE RARE /HPF (0-2); SQUAMOUS EPITHELIAL CELL,UR OCC /LPF; UROBILINOGEN,URINE 0.2 mg/dL (0.2 mg/dL)
[2018-07-29 12:13] LABS: HYALINE CASTS, URINE OCC /HPF
[2018-07-29] MEDS ORDERED: IV NORMAL SALINE 1,000ML 1,000 ML IV ONE (12:15)
[2018-07-29] MEDS ORDERED: ONDANSETRON PF 4 MG/2 ML VIAL. IV ONE (12:15)
[2018-07-29] MEDS ORDERED: IOHEXOL 300 MG/ML 75 ML VIAL. IV ONE (12:30)
[2018-07-29 12:39] LABS: BASO # 0.1 x10^3/uL (0.0-0.2); BASO % 1 % (0-3); EOS # 0.1 x10^3/uL (0.0-0.7); EOS % 2 % (0-3); HEMATOCRIT 32.8 % (39.0-53.0); HEMOGLOBIN 10.9 g/dL (13.0-17.5); LYMPH # 0.7 x10^3/uL (1.0-4.8); LYMPH % 11 % (24-48); MEAN CORPUSCULAR HEMOGLOBIN 31 pg (25-35); MEAN CORPUSCULAR HGB CONC 33 g/dL (31-37); MEAN CORPUSCULAR VOLUME 95 fL (79-100); MONO # 1.4 x10^3/uL (0.0-1.1); MONO % 23 % (0-9); NEUT # 3.6 x10^3uL (1.8-7.7); NEUT % 62 % (31-73); PLATELET COUNT 256 x10^3/uL (140-400); RED BLOOD COUNT 3.47 x10^6/uL (4.30-5.70); RED CELL DISTRIBUTION WIDTH 16.1 % (11.5-14.5); WHITE BLOOD COUNT 5.8 x10^3/uL (4.0-11.0)
[2018-07-29 12:53] LABS: ALBUMIN 2.1 g/dL (3.4-5.0); ALBUMIN/GLOBULIN RATIO 0.6 (1.0-1.7); CALCIUM 8.1 mg/dL (8.5-10.1); GFR 71.5; POTASSIUM 3.7 mmol/L (3.5-5.1); TOTAL BILIRUBIN 0.4 mg/dL (0.2-1.0); TOTAL PROTEIN 5.4 g/dL (6.4-8.2)
--- NOTE | 2018-07-29 12:59 | RAD ---
Exam performed: One view chest. Indication: Short of air, weakness Date of Service: 07/29/2018 12:34 PM Comparison: None available. Single AP upright portable view chest findings: Cardiomediastinal silhouette is within limits of normal. No acute infiltrates, effusion or pneumothorax is detected. Both lungs are hyperinflated suggesting emphysematous changes. There is a right-sided Port-A-Cath in place. The bony structures are normal. Impression: Stable chronic changes. No acute cardiac pulmonary process identified. Electronically signed by: Aaliyah Solorio MD (07/29/2018 12:56 PM) [facility]
--- NOTE | 2018-07-29 13:47 | RAD ---
Exam performed: CT scan of the abdomen and pelvis with contrast Clinical Indication: Upper abdominal pain, decreased appetite, history of prostate cancer, but of surgery 2007, cholecystectomy and appendectomy Date of Service: 07/29/2018 comparison: CT abdomen and pelvis from 11/11/2014 Technique: Contiguous helical acquisitions are obtained from the lung bases to the pelvis during intravenous administration of [75 cc of Omnipaque 300.] Sagittal and coronal reformatted images were obtained and reviewed. CT abdomen findings: Emphysematous changes are seen in both lung bases. Chronic interstitial markings are seen mainly involving the proximal aspects of both lungs. Heart size is normal. The liver and spleen appears unremarkable. Cholecystectomy and partial pancreatectomy secondary to a both surgery. Both adrenal glands are somewhat prominent and bilateral kidneys appear normal with symmetric excretion of contrast via both kidneys. 1.8 cm probable cyst in the right superior renal pole. The small bowel loops appear nondilated and unremarkable. Aorta is normal in caliber demonstrating diffuse atheromatous calcification. There is no retroperitoneal lymphadenopathy or mass lesions. No bowel related inflammatory stranding is noted. The urinary bladder is well distended and normal . Interrogation of bone windows demonstrates diffuse sclerotic changes involving the lower lumbar spine and patchy lytic and sclerotic abnormalities in the pelvic bones, which given the history of prostate cancer or concerning for bony metastasis. Sagittal and coronal reformatted images were obtained and reviewed which demonstrate no additional findings. Impression abdomen and pelvis : 1. No acute intra-abdominal or pelvic process is detected. 2. Probable right renal cyst. 3. Emphysematous lungs with chronic interstitial changes. 4. Bony normalities consistent with metastatic process. Evaluation with nuclear medicine whole body bone scan may be obtained to evaluate additional lesions. PQRS Compliance Statement: One or more of the following individualized dose reduction techniques were utilized for this examination: 1. Automated exposure control 2. Adjustment of the mA and/or kV according to patient size 3. Use of iterative reconstruction technique Electronically signed by: Aaliyah Solorio MD (07/29/2018 1:43 PM) [facility]
--- NOTE | 2018-07-29 17:16 | EKG ---
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
[2018-07-30] MEDS ORDERED: DENO120V SQ (19:51)
[2018-07-30] MEDS ORDERED: LEUP22.52 IM (19:51)
[2018-07-30] MEDS ORDERED: MULT1TAB52 PO (19:52)
[2018-07-30] MEDS ORDERED: CHOL2000 PO (19:52)
[2018-07-30] MEDS ORDERED: CALC-157 PO (19:53)
[2018-07-30] MEDS ORDERED: FURO-69 PO (19:56)
== END 2018-07-29 14:29 | disposition home or self-care (01) ==
LOC: ER 10:53
DX: R10.13 Epigastric pain (principal); C79.82 Secondary malignant neoplasm of genital organs; J44.9 Chronic obstructive pulmonary disease, unspecified; K21.9 Gastro-esophageal reflux disease without esophagitis; E78.00 Pure hypercholesterolemia, unspecified; I10 Essential (primary) hypertension; R94.5 Abnormal results of liver function studies; Z85.46 Personal history of malignant neoplasm of prostate; Z88.0 Allergy status to penicillin; Z88.2 Allergy status to sulfonamides; Z88.5 Allergy status to narcotic agent
CPT/HCPCS: 99285; J2405; 36415; 71045; 74177; 80053; 81001; 84484; 85025; 93005; 96374; Q9967; J7030

== ENCOUNTER 2018-07-30 19:10 | Inpatient (IN) | payer MEDICARE ==
[~2018-07-30] VITALS: Ht 180.3 cm; Wt 56.8 kg
[2018-07-30 19:31] VITALS: BP 93/58
[2018-07-30 19:38] LABS: BASO # 0.1 x10^3/uL (0.0-0.2); BASO % 1 % (0-3); EOS # 0.1 x10^3/uL (0.0-0.7); EOS % 2 % (0-3); HEMATOCRIT 33.1 % (39.0-53.0); HEMOGLOBIN 10.7 g/dL (13.0-17.5); LYMPH # 0.6 x10^3/uL (1.0-4.8); LYMPH % 9 % (24-48); MEAN CORPUSCULAR HEMOGLOBIN 31 pg (25-35); MEAN CORPUSCULAR HGB CONC 32 g/dL (31-37); MEAN CORPUSCULAR VOLUME 96 fL (79-100); MONO # 1.4 x10^3/uL (0.0-1.1); MONO % 20 % (0-9); NEUT # 4.9 x10^3uL (1.8-7.7); NEUT % 68 % (31-73); PLATELET COUNT 235 x10^3/uL (140-400); RED BLOOD COUNT 3.46 x10^6/uL (4.30-5.70); RED CELL DISTRIBUTION WIDTH 16.2 % (11.5-14.5); WHITE BLOOD COUNT 7.1 x10^3/uL (4.0-11.0)
[2018-07-30 19:49] LABS: ALBUMIN 1.8 g/dL (3.4-5.0); ALBUMIN/GLOBULIN RATIO 0.6 (1.0-1.7); CALCIUM 7.8 mg/dL (8.5-10.1); CREATININE 1.2 mg/dL (0.7-1.3); POTASSIUM 3.5 mmol/L (3.5-5.1); TOTAL BILIRUBIN 0.4 mg/dL (0.2-1.0)
[2018-07-30] MEDS ORDERED: LEUP22.52 IM (19:51)
[2018-07-30] MEDS ORDERED: DENO120V SQ (19:51)
[2018-07-30] MEDS ORDERED: MULT1TAB52 PO (19:52)
[2018-07-30] MEDS ORDERED: CHOL2000 PO (19:52)
[2018-07-30] MEDS ORDERED: CALC-157 PO (19:53)
[2018-07-30] MEDS ORDERED: FURO-69 PO (19:56)
[2018-07-30] MEDS: POTASSIUM CL 20MEQ IN 0.9%NACL 1,000 ML IV SCH (20:14)
[2018-07-30 23:03] VITALS: BP 115/72
[2018-07-31] VITALS (8 sets, daily range): BP systolic 112–163; BP diastolic 72–89
[2018-07-31] MEDS: POTASSIUM CL 20MEQ IN 0.9%NACL 1,000 ML IV SCH ×2 (05:06→14:31)
[2018-07-31] MEDS: ACETAMINOPHEN 325 MG TABLET PO PRN ×2 (07:07→21:41)
[2018-07-31] MEDS: CETIRIZINE HCL 10 MG TABLET PO SCH (07:48)
[2018-07-31] MEDS: CHOLECALCIFEROL (VITAMIN D3) 1,000 UNIT TABLET PO SCH (07:48)
[2018-07-31] MEDS: PANTOPRAZOLE 40 MG TABLET. PO SCH (07:48)
[2018-07-31] MEDS: CALCIUM CARB/VIT D3 500/200 TABLET PO SCH (07:49)
[2018-07-31] MEDS: GABAPENTIN 100 MG CAPSULE. PO SCH ×3 (07:49→21:00)
[2018-07-31] MEDS: MULTIVITAMIN I-VITE TABLET. PO SCH (07:49)
[2018-07-31] MEDS: METOPROLOL TART IMMED RELEASE 25 MG TABLET PO SCH ×2 (07:54→20:38)
--- NOTE | 2018-07-31 13:58 | HP ---
ADMIT DATE: 07/30/2018 HISTORY OF PRESENT ILLNESS: The patient is an 83-year-old male patient who was admitted directly yesterday from home as he apparently has been having weakness started last Tuesday, also has anorexia, has been unable to walk even with a walker and has not been able to eat or drink, all this started like from Tuesday. He was apparently seen in the Emergency Room, stayed there for about 4-1/2 hours, received IV fluid, felt somewhat better and was discharged home. However, he continued to do poorly and therefore we admitted him directly to start him on IV fluid and apparently he has received radium therapy on 07/01/2018, however, since then, he did not do well and his daughter called to cancel the next appointment, which he was due for. He was also on a tapering course of steroids, he finished the taper about 2 weeks ago. The patient himself did also complain of pain in his chest that he attributes to his cancer metastases, although when I saw him this morning, he denied any pain. Denied any constipation. He has a bowel movement yesterday. Denied any dizziness, lightheadedness, or vertigo. He was admitted. We start him on IV fluid and continued his medication that included Tylenol and oxycodone. PAST MEDICAL HISTORY: Significant for hypertension, hyperlipidemia, previous episode of TIA, COPD, nephrolithiasis, treated with extracorporeal lithotripsy and also cystoscopy and retrograde pyelography and stent deployment. 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 He apparently has received radium treatment first dose on 07/01/2018 and he ____ arrived in the mail he has not used it yet. PAST SURGICAL HISTORY: Significant for tonsillectomy, Whipple's procedure laminectomy, had had colonoscopy, has also cystoscopy, retrograde pyelography and stent deployment. ALLERGIES: He is allergic to PENICILLIN, SULFA, and MORPHINE. MEDICATIONS: He is currently on following medications: He is on cetirizine 10 mg tablet once a day, Flomax 0.4 mg daily at bedtime, metoprolol tartrate 25 mg twice a day, gabapentin 100 mg 3 times a day. He is on calcium carbonate with vitamin D 1 tablet daily. He was on furosemide 20 mg every other day. He is on Advair Diskus 250/50 one puff twice a day, omeprazole 20 mg once a day, Lupron Depot 22.5 mg intramuscular q. 3 months, cholecalciferol, vitamin D3 2000 international unit once a day, multivitamin 1 tablet once a day, and Xgeva 120 mg subcutaneously once a month. REVIEW OF SYSTEMS: As per history of present illness. PHYSICAL EXAMINATION: GENERAL: When I examined him on arrival, the patient was extremely pale, cachectic, but no jaundice, cyanosis, or thyromegaly. No jugular venous distension. No limb edema. VITAL SIGNS: His heart rate was 100, blood pressure was 93/58, temperature was 98.1, respiratory rate 20, and oxygen saturation was 94%. HEAD, EYES, EARS, NOSE, AND THROAT: Showed normocephalic, atraumatic. NECK: Supple. HEART: Showed normal first and second heart sounds. No gallop, rub, or murmur. CHEST: Clear to auscultation. No crepitation or rhonchi. ABDOMEN: Distended, soft, nontender. No guarding or rigidity. No organomegaly. All hernial orifice intact. Bowel sounds normal. NEUROLOGIC: He was awake, alert, responding appropriately. All cranial nerves intact. EXTREMITIES: He moves extremities without difficulty. He ambulates with a walker, although he has been very weak recently that he was unable to walk. LABORATORY DATA: On arrival showed that his white cell count was 7100, hemoglobin 10.7, hematocrit 33.1, MCV 96, and platelet count 235,000. His chemistry showed a serum sodium 142, potassium 3.5, chloride 110, bicarbonate 21, anion gap of 11, BUN 13, creatinine 1.2, estimated GFR was 58 mL per minute. His glucose 137, calcium was 7.8. Total bilirubin, AST, ALT were normal. Alkaline phosphatase slightly elevated. Total protein was 5, albumin was 1.8. IMPRESSION: In summary, this is an 83-year-old male patient with metastatic prostate cancer, who was admitted with generalized weakness, weight loss, and severe anorexia. He has received radium therapy by [facility]rology team on 07/01/2018. PLAN: My plan is to continue obviously with IV fluid, continue with the pain management and all other medication. I will verify his medication list with his daughter and we will decide on further management accordingly. OSCAR MOSS MD DR: JANELLE/rene JOB#: [id number] / [id number]
[2018-07-31] MEDS: oxyCODONE IR 5 MG TABLET PO PRN (16:48)
--- NOTE | 2018-07-31 16:48 | RAD ---
Examination: VENOUS LOWER EXT BILATERAL History: Bilateral leg swelling and pain

IMP: No DVT seen in visualized veins Comparison/Correlation: None Findings: Bilateral lower extremity duplex venous ultrasound exam was performed. Grayscale, color Doppler, and spectral Doppler imaging was performed. Compression and augmentation was performed. The right common femoral vein, superficial femoral vein, popliteal vein, and greater saphenous vein are normal with no evidence of deep venous thrombus. Visualized calf veins are unremarkable. Normal compressibility and augmentation is evident. The left common femoral vein, superficial femoral vein, popliteal vein, and greater saphenous vein are normal with no evidence of deep venous thrombus. Visualized calf veins are unremarkable. Normal compressibility and augmentation is evident. IMPRESSION: Normal bilateral lower extremity duplex ultrasound exam. No evidence of deep venous thrombus involving the lower extremities. Electronically signed by: Charlie Dalal MD (07/31/2018 4:45 PM) [facility]
--- NOTE | 2018-07-31 18:41 | RAD ---
CT Head W/O Contrast: History: upper left side of face/ear severe pain Comparison: none Axial images were obtained without contrast. There is moderate diffuse atrophy. There is no mass effect, extraaxial fluid collections or hydrocephalus. There is no focal loss of mckinley-white matter distinction to suggest acute ischemia, i.e. stroke. Impression: No acute findings. End impression CT maxillofacial without contrast History: Upper left-sided face and ear pain Axial helical images of the face were obtained without contrast. Axial, sagittal and coronal reconstruction was performed. The nasal septum is mostly midline. The ostiomeatal complexes are narrow but patent. There is mild mucoperiosteal thickening inferiorly in the maxillary sinuses. The mastoid air cells are clear. The visualized osseous structures appear intact. The orbits appear normal. There is marked degenerative changes of the visualized portion of the C-spine with multilevel central and neural foraminal stenosis. Impression: No acute findings. PQRS Compliance Statement: One or more of the following individualized dose reduction techniques were utilized for this examination: 1. Automated exposure control 2. Adjustment of the mA and/or kV according to patient size 3. Use of iterative reconstruction technique Electronically signed by: Erickson Delgado III, MD (07/31/2018 6:38 PM) [facility]
[2018-07-31] MEDS ORDERED: VANCOMYCIN PER PHARMACY MC PRN (20:15)
[2018-07-31] MEDS: TAMSULOSIN 0.4 MG CAP.ER.24H. PO SCH (20:38)
[2018-07-31] MEDS: MEROPENEM 1 GM in IV NORMAL SALINE 100ML 100 ML IV SCH (21:57)
[2018-07-31] MEDS ORDERED: VANCOMYCIN 1.5 GM in IV NORMAL SALINE 500ML 500 ML IV ONE (22:00)
--- NOTE | 2018-07-31 22:01 | PN ---
DATE: 07/31/2018 SUBJECTIVE: The patient is resting slightly propped up in bed, in no apparent respiratory distress. He is awake, alert, apparently doing much better. He has had breakfast and lunch, has worked with physical therapy and walked with a walker with standby assist. PHYSICAL EXAMINATION: GENERAL: When I examined him this morning, he looked pale. No jaundice, cyanosis, or thyromegaly. No jugular venous distension. No limb edema. VITAL SIGNS: His heart rate was 83, blood pressure was 118/78, temperature was 98, respiratory rate was 20, and oxygen saturation was 93% on room air. HEAD, EYES, EARS, NOSE AND THROAT: Showed he is normocephalic, atraumatic. NECK: Supple. HEART: Showed normal first and second heart sounds. No gallop, rub or murmur. CHEST: Clear to auscultation. No crepitation or rhonchi. ABDOMEN: Distended, soft, nontender. No guarding or rigidity. No organomegaly. All hernial orifices intact. Bowel sounds normal. NEUROLOGIC: He was awake, alert, responding appropriately. All cranial nerves are intact. He moves extremities without difficulty. His intake was 1600, no output was recorded. LABORATORY DATA: He has no lab work done this morning. Apparently, has had chest x-ray on 07/29/2018. He was seen at the Emergency Room, which showed that the patient has cardiomediastinal silhouette, which is within normal limits. He has no acute infiltrate, effusion or pneumothorax detected. Both lungs are hyperinflated showing emphysematous changes. He has a right-sided Port-A-Cath in place. The bony structures are normal. He also had a CT scan of the abdomen and pelvis, which showed the patient has emphysematous changes in both lung bases, chronic interstitial markings are seen mainly involving the proximal aspect of both lungs. The heart size is normal. Liver and spleen appear to be unremarkable. Cholecystectomy and partial pancreatectomy secondary . Both adrenal glands are somewhat prominent, bilateral kidneys appears normal with symmetric excretion of contrast by both kidneys. The small bowel loops appear nondilated and unremarkable. Aorta is normal in caliber, demonstrating diffuse atheromatous calcification. There is no retroperitoneal lymphadenopathy or mass lesion and no bowel related inflammatory stranding is noted. The urinary bladder is well distended and normal. Interrogation of bone windows demonstrate diffuse sclerotic changes involving the lower lumbar spine and patchy lytic and sclerotic abnormalities in the pelvic bones, which given the history of prostate cancer, are concerning for bony metastases. Sagittal and coronal information images were obtained and reviewed. There is no additional finding. My plan is to continue with IV fluid. We have resumed all his medication. We will check his orthostatics. We will also order venous Doppler ultrasound and morning cortisol as he finished a tapering course of steroids about 2 weeks ago. OSCAR MOSS MD DR: JANELLE/rene JOB#: [id number] / [id number]
--- NOTE | 2018-08-01 00:05 | RAD ---
PORTABLE CHEST 1V Clinical History: fever, weakness Technique: AP view of the chest was obtained at 07/31/2018 9:50 PM. Comparison: July 29, 2018. Findings: The heart and pulmonary vessels appear normal. There is reticular opacities of lungs. Right-sided Port-A-Cath is again seen. Impression: Chronic pulmonary fibrosis. No acute findings. Electronically signed by: Erickson Delgado III, MD (08/01/2018 12:02 AM) [facility]
[2018-08-01] MEDS: POTASSIUM CL 20MEQ IN 0.9%NACL 1,000 ML IV SCH ×2 (04:20→13:30)
[2018-08-01] MEDS: oxyCODONE IR 5 MG TABLET PO PRN (04:21)
[2018-08-01 05:37] VITALS: BP 126/80
[2018-08-01] MEDS ORDERED: HYDROmorphone PF 2 MG/ML VIAL IV PRN ×2 (07:15→12:15)
[2018-08-01] MEDS: PANTOPRAZOLE 40 MG TABLET. PO SCH ×2 (07:30→07:53)
[2018-08-01] MEDS: ACETAMINOPHEN 325 MG TABLET PO PRN (07:52)
[2018-08-01] MEDS: CALCIUM CARB/VIT D3 500/200 TABLET PO SCH ×2 (07:53→08:00)
[2018-08-01] MEDS: MULTIVITAMIN I-VITE TABLET. PO SCH ×2 (07:53→08:55)
[2018-08-01] MEDS: CHOLECALCIFEROL (VITAMIN D3) 1,000 UNIT TABLET PO SCH ×2 (07:53→08:55)
[2018-08-01] MEDS: CETIRIZINE HCL 10 MG TABLET PO SCH ×2 (07:53→08:55)
[2018-08-01] MEDS: GABAPENTIN 100 MG CAPSULE. PO SCH ×5 (07:53→21:15)
[2018-08-01] MEDS: METOPROLOL TART IMMED RELEASE 25 MG TABLET PO SCH ×3 (07:54→21:00)
[2018-08-01 08:31] LABS: HEMATOCRIT 34.3 % (39.0-53.0); HEMOGLOBIN 10.9 g/dL (13.0-17.5); RED BLOOD COUNT 3.56 x10^6/uL (4.30-5.70); RED CELL DISTRIBUTION WIDTH 16.9 % (11.5-14.5); WHITE BLOOD COUNT 11.4 x10^3/uL (4.0-11.0)
[2018-08-01 08:40] LABS: CALCIUM 7.6 mg/dL (8.5-10.1); GFR 71.5; POTASSIUM 4.6 mmol/L (3.5-5.1)
[2018-08-01] MEDS: MEROPENEM 1 GM in IV NORMAL SALINE 100ML 100 ML IV SCH ×2 (08:58→21:10)
[2018-08-01 10:27] VITALS: BP 101/65
--- NOTE | 2018-08-01 14:32 | PN ---
DATE: 08/01/2018 SUBJECTIVE: The patient is resting, slightly propped up, sleeping comfortably, in no apparent distress. He developed sudden severe pain in his left ear and left jaw yesterday and his fentanyl and Percocet have not controlled his pain and therefore we started him on hydromorphone 2 mg IV and that apparently over sedated him. When I saw him this morning, he was sleeping comfortably. However, the moment I of his left ear or left face, he had developed sudden severe lancinating pain. I could not really examine his external auditory meatus. There was no obvious redness or swelling of the left ear or left side of the face. I did speak with Dr. Mccarthy, the oncologist at [facility] as he is on Xgeva and one of the side effects is osteonecrosis and Dr. Mccarthy stated that normally with osteonecrosis, there is visible redness and marked swelling of the side of the face that is affected. Other possibilities include trigeminal neuralgia and/or possible prodrome before the Shingles shows itself. PHYSICAL EXAMINATION: GENERAL: When I examined him this morning, he looked pale, but no jaundice, cyanosis, or thyromegaly. No jugular venous distention. No limb edema. VITAL SIGNS: His heart rate was 116, blood pressure was 101/65, temperature was 98.3, respiratory rate was 16 and oxygen saturation was 100% on 3 liters of oxygen. HEAD, EYES, EARS, NOSE AND THROAT: Showed normocephalic, atraumatic. NECK: Supple. HEART: Showed normal first and second heart sounds. No gallop, rub or murmur. CHEST: Clear to auscultation. No crepitation or rhonchi. ABDOMEN: Distended, soft, nontender. No guarding or rigidity. No organomegaly. All hernial orifices intact. Bowel sounds normal. NEUROLOGIC: He is sleepy, but arousable. All his cranial nerves are intact. He moves extremities without difficulty; however, he is extremely sensitive on touching his left ear and left side of the face. His intake over the last 24 hours was 1680 and no output was recorded. LABORATORY DATA: His lab work this morning showed a white cell count of 11,400, hemoglobin 11, hematocrit 34, MCV 97 and platelet count ____. His chemistry showed a serum sodium 142, potassium 4.6, chloride 112, bicarbonate 23, anion gap of 7, BUN 13, creatinine 1, estimated GFR was 71 mL per minute. His glucose was 99, calcium was 7.6, magnesium was 1.7. ASSESSMENT: Sudden severe pain involving his left ear and left side of the face with differential diagnosis including: A. Chemotherapy-induced osteonecrosis. B. Trigeminal neuralgia. C. Herpes zoster. Other medical problems include dehydration, generalized weakness, metastatic prostate cancer, hypertension, hyperlipidemia, chronic obstructive pulmonary disease, and nephrolithiasis. RECOMMENDATIONS: As per Dr. Mccarthy's recommendation, we will arrange for him to have a CT scan of the maxillofacial area with special emphasis on the left temporal bone and left jaw. He is already on IV antibiotic for possible external otitis media and obviously there is no finding on the CT scan. We will continue with pain management for now. If there is no abnormality, we will consult Dr. Lobato to treat the possible trigeminal neuralgia. OSCAR MOSS MD DR: JANELLE/rene JOB#: [id number] / [id number]
[2018-08-01 15:00] VITALS: BP 107/70
--- NOTE | 2018-08-01 16:08 | RAD ---
CT scan of the head without contrast 08/01/2018 Clinical History: Left-sided facial pain. Code stroke. Technique: Unenhanced, contiguous, 5 mm axial sections were obtained through the head. One or more of the following individualized dose reduction techniques were utilized for this study: 1. Automated exposure control. 2. Adjustment of the mA and/or kV according to patient size. 3. Use of iterative reconstruction technique. Findings: Comparison study is dated 07/31/2018. There is generalized parenchymal atrophy. Areas of decreased attenuation are seen within the periventricular and subcortical white matter of both cerebral hemispheres consistent with areas of small vessel ischemic disease. No acute parenchymal abnormality is seen. No extra-axial fluid collection is noted. No skull fracture is seen. Impression: No acute intracranial abnormality is seen. This patient's nurse was notified of this finding. Electronically signed by: Nacho Jordan MD (08/01/2018 4:04 PM) [facility]
--- NOTE | 2018-08-01 18:14 | RAD ---
CT CERVICAL SPINE WO CONTRAST Indication: NECK PAIN, METASTISIS PROSTATE CA Exposure: One or more of the following individualized dose reduction techniques were utilized for this examination: 1. Automated exposure control 2. Adjustment of the mA and/or kV according to patient size 3. Use of iterative reconstruction technique. Technique: Standard imaging without intravenous contrast. No prior studies are available for comparison. Diffuse patchy osteoblastic change in the cervical spine, greatest at C3, C4, C7, T1 and T2.There is also aggressive osteolytic component of bone destruction, particularly at T1 on the right which extends into the posterior elements. Vertebral body height is fairly well-maintained. There is multilevel cervical spondylosis. There are posterior spurs from the cervical spine. Multilevel spinal stenosis, of at least moderate severity. There is also bilateral neural foraminal stenosis at multiple levels. Straightening of the cervical lordosis. No significant spondylolisthesis. Thyroid is small. Changes in both lung apices compatible with scarring/emphysema. IMPRESSION: Findings are compatible with aggressive osteoblastic and osteolytic change of the cervical spine, compatible with metastatic disease. There is also degenerative spondylosis with multilevel spinal and neural foraminal stenosis. MR could be of benefit for further characterization of bone and soft tissue changes as well as cord involvement. Electronically signed by: Sergio Meza MD (08/01/2018 6:11 PM) [id number]
[2018-08-01] MEDS: HYDROmorphone PF 1 MG/ML DISP.SYRIN IV PRN ×2 (18:18→22:13)
[2018-08-01 19:32] VITALS: BP 99/64
[2018-08-01] MEDS: TAMSULOSIN 0.4 MG CAP.ER.24H. PO SCH ×2 (21:00→21:15)
[2018-08-01] MEDS: LACTOBACILLUS RHAMNOSUS GG 1 CAPSULE. PO SCH (21:00)
[2018-08-01] MEDS: carBAMazepine 200 MG TABLET PO SCH ×2 (21:00→21:11)
[2018-08-01] MEDS ORDERED: VANCOMYCIN 750 MG in IV NORMAL SALINE 250ML 250 ML IV SCH (22:00)
[2018-08-01] MEDS: carBAMazepine 200 MG/10 ML ORAL.SUSP PO SCH ×2 (22:13→22:15)
[2018-08-01 23:00] VITALS: BP 111/61
[2018-08-02] MEDS: HYDROmorphone PF 1 MG/ML DISP.SYRIN IV PRN ×4 (00:38→12:10)
--- NOTE | 2018-08-02 03:35 | CONS ---
DATE OF CONSULTATION: 08/01/2018 NEUROLOGIC CONSULTATION REFERRING PHYSICIAN: Gely Mcnair M.D. REASON FOR CONSULTATION: Acute onset of severe pain of the left ear and face. HISTORY OF PRESENT ILLNESS: This is an 83-year-old right-handed male who has had a longstanding history of prostate cancer with metastasis to the spine and other areas, who had been in his usual state of health until this morning when he started complaining of severe pain confined to the left ear, radiating to the left face, described as a lancinating pain. This information was obtained from the patient's chart. However, he is not able to provide any information at this time and he is not communicating well probably due to excessive sedation. The patient has been treated with Tylenol, Dilaudid, and oxycodone for pain control. PAST MEDICAL HISTORY: Significant for prostate cancer radiating into multiple organs including the pancreas, hypertension, hyperlipidemia, TIA, acute COPD, nephrolithiasis. The prostate cancer metastasized to the sternum and spine and other bones. He was treated with Lupron, Casodex, and Taxotere. History of cholangiocarcinoma diagnosed 10 years ago. He underwent a Whipple procedure. He received chemotherapy and radiation on 07/01/2018. PAST SURGICAL HISTORY: Significant for the Whipple's procedure, laminectomy, colonoscopy. FAMILY HISTORY: Unobtainable. SOCIAL HISTORY: There is no history of smoking, alcohol drinking, or illicit drug use. CURRENT MEDICATIONS: Vancomycin IV, Dilaudid 0.5 mg q. 2 hours p.r.n. for severe pain, meropenem 1 mg IV piggyback, Flomax 0.5 mg at bedtime, metoprolol 25 mg b.i.d., multivitamins, vitamin D3, Zyrtec 10 mg daily, gabapentin 100 mg t.i.d., Protonix 25 mg daily, potassium, oxycodone 5/325 q.6h. p.r.n. for pain along with Tylenol 650 q. 6 hours p.r.n. ALLERGIES: PENICILLIN, SULFA DRUGS, and MORPHINE. REVIEW OF SYSTEMS: A 10-point review of systems was performed as mentioned above in the history of present illness. PHYSICAL EXAMINATION: GENERAL: A well-developed, well-nourished male, not in acute distress. VITAL SIGNS: Blood pressure 99/64, respiratory rate 18, pulse 79, temperature 97.9, AND oxygen saturation 94% on 2 liters by nasal cannula. HEENT: Normocephalic and atraumatic, otherwise unremarkable. There is tenderness over the left face and left ear. MOTOR EXAMINATION: Reveals no focal muscle bulk wasting. The tone was normal. The strength was 3/5 throughout as the patient is not able to cooperate. SENSORY: Examination revealed normal pinprick and light touch senses. Deep tendon reflexes were symmetric and hypoactive with absent Achilles responses. GAIT: The patient is confined to the bed and chair. LABORATORY DATA: CBC revealed white blood cells of 11,400, hemoglobin ____, platelet count is 251,000. ESR is high at 47. Chemistry revealed sodium 142, potassium 4.6, chloride 112, CO2 23, BUN 15, creatinine 1, with a GFR of 71.5, glucose 99. Lactic acid 0.5. Calcium is low at 7.6. Magnesium is low at 1.7. CRP is markedly elevated at 130.7. Troponin level of 0.03. Testosterone was low at less than 3, and cortisol a.m. was normal at 10.12. Urinalysis was negative for urinary tract infections. A CT of the maxillofacial face revealed no acute findings. Cervical spine CT revealed aggressive osteoblastic and osteolytic changes of the cervical spine consistent with metastasis. Also, shows degenerative spondylosis with multilevel degenerative disk disease and neuroforaminal stenosis. Venous Doppler of the lower extremity revealed a normal study. IMPRESSION: 1. Known with prostate cancer with metastasis to the pancreas, spine, that required radiation and chemotherapy. 2. Acute onset of severe left facial pain and ear, described as a lancinating pain, probably consistent in the distributions of the left trigeminal nerve suggestive of possible trigeminal neuralgia. 3. Multiple medical problems include hypertension, hyperlipidemia, chronic obstructive pulmonary disease and nephrolithiasis. RECOMMENDATIONS: 1. Empirically, we will start the patient on carbamazepine at 100 mg t.i.d., and adjust the dose as needed. 2. Continue with current management initiated by Dr. Mcnair. M Jaci SUN MD DR: NOREEN/rene JOB#: [id number] / [id number]
[2018-08-02] MEDS: POTASSIUM CL 20MEQ IN 0.9%NACL 1,000 ML IV SCH ×2 (05:01→05:44)
[2018-08-02 05:08] VITALS: BP 100/58
[2018-08-02 06:30] LABS: CALCIUM 7.4 mg/dL (8.5-10.1); GFR 71.5; POTASSIUM 4.7 mmol/L (3.5-5.1)
[2018-08-02] MEDS: PANTOPRAZOLE 40 MG TABLET. PO SCH (07:30)
[2018-08-02] MEDS ORDERED: IV DEXTROSE 5 %-0.2 % NACL 1,000 ML IV SCH (07:30)
[2018-08-02] MEDS ORDERED: DEXTROSE 50% 25 GM / 50ML DISP.SYRIN. IV ONE (07:30)
[2018-08-02] MEDS: CALCIUM CARB/VIT D3 500/200 TABLET PO SCH (08:00)
[2018-08-02] MEDS: METOPROLOL TART IMMED RELEASE 25 MG TABLET PO SCH (09:00)
[2018-08-02] MEDS: GABAPENTIN 100 MG CAPSULE. PO SCH (09:00)
[2018-08-02] MEDS: LACTOBACILLUS RHAMNOSUS GG 1 CAPSULE. PO SCH (09:00)
[2018-08-02] MEDS: carBAMazepine 200 MG/10 ML ORAL.SUSP PO SCH (09:00)
[2018-08-02] MEDS: CHOLECALCIFEROL (VITAMIN D3) 1,000 UNIT TABLET PO SCH (09:00)
[2018-08-02] MEDS: CETIRIZINE HCL 10 MG TABLET PO SCH (09:00)
[2018-08-02] MEDS: MULTIVITAMIN I-VITE TABLET. PO SCH (09:00)
[2018-08-02] MEDS: MEROPENEM 1 GM in IV NORMAL SALINE 100ML 100 ML IV SCH (09:29)
[2018-08-02 10:07] VITALS: BP 103/68
[2018-08-02] MEDS ORDERED: POLYVINYL ALCOHOL 1.4% OPHTH SOLUTION 15ML BOTTLE. OU PRN (10:45)
[2018-08-02] MEDS ORDERED: ACETAMINOPHEN 650 MG SUPP.RECT. PR PRN (10:45)
[2018-08-02] MEDS ORDERED: SCOPOLAMINE 1.5MG PATCH. TD SCH (11:00)
[2018-08-02] MEDS ORDERED: ONDANSETRON PF 4 MG/2 ML VIAL. IV PRN (12:30)
[2018-08-02] MEDS ORDERED: HYDROmorphone PF 2 MG/ML VIAL IV PRN (12:30)
[2018-08-02] MEDS ORDERED: HYDROmorphone PF 1 MG/ML DISP.SYRIN IV PRN (12:30)
--- NOTE | 2018-08-02 14:15 | DS ---
DATE OF DISCHARGE: 08/02/2018 HOSPITAL COURSE: The patient is an 83-year-old male patient, who was known to have metastatic prostate cancer to the pancreas and bone, who was admitted originally with generalized weakness, poor appetite and poor oral intake. We did start him on IV fluid and while here he developed sudden severe pain in his left ear and left jaw. CT scan of the head and maxillofacial area did not show any pathology and it was felt that the patient might have trigeminal neuralgia. He also complained of severe pain in his neck and we did actually CT scan of his cervical spine, which showed findings are compatible with aggressive osteoblastic and osteolytic changes in the cervical spine compatible with metastatic disease. There is also degenerative spondylosis with multilevel spinal and neural foraminal stenosis. MRI could be of benefit for further characterization of bone and soft tissue and changes as well as cold. The family decided against any further aggressive treatment and basically requested hospice and comfort care. He basically would like to consider only hospice and comfort care and therefore we discontinued all aggressive form of treatment. The patient was discharged to inpatient hospice for comfort and end of life care. PHYSICAL EXAMINATION: GENERAL: When I saw him this morning, the patient was resting slightly propped up in bed, sleeping comfortably. He is not arousable to verbal stimuli; however, he does wince and grimace on tactile stimulation particular to some painful areas. He was pale, but no jaundice, cyanosis, or thyromegaly. No jugular venous distension. No lower limb edema. VITAL SIGNS: His heart rate was 129, blood pressure 103/68, temperature was 98, respiratory rate 20, and oxygen saturation was 92% on room air. HEAD, EYES, EARS, NOSE AND THROAT: Showed normocephalic, atraumatic. NECK: Supple. HEART: Showed normal first and second heart sounds. No gallop, rub or murmur. CHEST: Clear to auscultation. No crepitation or rhonchi. ABDOMEN: Distended, soft, nontender. No guarding or rigidity. No organomegaly. All hernial orifice intact. Bowel sounds normal. NEUROLOGIC: He was very encephalopathic. LABORATORY DATA: His lab work this morning showed serum sodium 146, potassium 4.7, chloride 115, bicarbonate 19, BUN of 14, creatinine 1. The patient was basically discharged to inpatient hospice. FINAL DISCHARGE DIAGNOSES: More widely metastatic prostate cancer, sudden onset of severe left facial pain and ear described as lancinating pain probably consistent to distribution of the left trigeminal nerve. Suggest possible trigeminal neuralgia, although cervicalgia is possibility also. He has multiple other medical problems including hypertension, hyperlipidemia, chronic obstructive pulmonary disease and nephrolithiasis. OSCAR MOSS MD DR: JANELLE/rene JOB#: [id number] / [id number]
--- NOTE | 2018-08-02 14:59 | PN ---
DATE: 08/02/2018 SUBJECTIVE: The patient is resting flat in bed, sleeping comfortably. He gets irritated easily, but does not really open his eyes or respond verbally. Family has decided to consider hospice and comfort care and therefore we discontinued all his medication except his pain medication antianxiety atropine and scopolamine patch. PHYSICAL EXAMINATION: GENERAL: When I examined him this morning, he looked pale, cachectic, but no jaundice, cyanosis, or thyromegaly. No jugular venous distension. No lower limb edema. VITAL SIGNS: His heart rate was 129, blood pressure was 103/68, temperature was 98, respiratory rate was 20, and oxygen saturation was 92% on 1.5 liters of oxygen. HEAD, EYES, EARS, NOSE AND THROAT: Showed normocephalic, atraumatic. NECK: Supple. CARDIAC: Normal first and second sounds. No gallop, rub or murmur. CHEST: Clear to auscultation. No crepitation or rhonchi. ABDOMEN: Scaphoid, soft, nontender. NEUROLOGIC: The patient is encephalopathic. He does get irritated and winces whenever he is touched, but otherwise he seems to be comfortable. LABORATORY DATA: His lab work this morning showed serum sodium 146, potassium 4.7, chloride 115, bicarbonate 19, anion gap of 12, BUN 14, creatinine 1, estimated GFR was 71 mL per minute. His glucose was 44, calcium was 7.4. His sedimentation rate was high. His morning cortisol was within normal range. Sed rate and CRP was elevated. ASSESSMENT: 1. 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 Severe lancinating pain in left ear and left face consistent with possible trigeminal neuralgia. 2. Hypertension. 3. Hyperlipidemia. 4. Chronic obstructive pulmonary disease. PLAN: Basically continue with comfort care. OSCAR MOSS MD DR: JANELLE/rene JOB#: [id number] / [id number]
== END 2018-08-02 14:11 | disposition hospice, inpatient (51) | DRG 73 ==
LOC: 1 SOUTH 19:10
PROVIDERS: ADMIT Internal Medicine; ATTEND Internal Medicine
DX: G50.0 Trigeminal neuralgia (principal); E43 Unspecified severe protein-calorie malnutrition; C79.51 Secondary malignant neoplasm of bone; C78.89 Secondary malignant neoplasm of other digestive organs; M87.9 Osteonecrosis, unspecified; Z68.1 Body mass index [BMI] 19.9 or less, adult; C61 Malignant neoplasm of prostate; B02.9 Zoster without complications; E78.5 Hyperlipidemia, unspecified; E86.0 Dehydration; I10 Essential (primary) hypertension; J44.9 Chronic obstructive pulmonary disease, unspecified; M47.9 Spondylosis, unspecified; M48.00 Spinal stenosis, site unspecified; Z51.5 Encounter for palliative care; N20.0 Calculus of kidney; H92.02 Otalgia, left ear; Z86.73 Personal history of transient ischemic attack (TIA), and cerebral infarction without residual deficits; Z92.21 Personal history of antineoplastic chemotherapy; Z92.3 Personal history of irradiation; Z87.442 Personal history of urinary calculi; Z90.49 Acquired absence of other specified parts of digestive tract; Z88.5 Allergy status to narcotic agent; Z88.0 Allergy status to penicillin; Z88.2 Allergy status to sulfonamides; Z85.05 Personal history of malignant neoplasm of liver; Z85.46 Personal history of malignant neoplasm of prostate
CPT/HCPCS: 36415; 70450; 70486; 71045; 72125; 74177; 80048; 80053; 81001; 82533; 82947; 83735; 84484; 85025; 85027; 85651; 86140; 87040; 87077; 87205; 93005; 93970; J1170; J2060; J2185; J3010; J3370; J7040; J7050; Q9967; 97530

== ENCOUNTER 2018-08-02 14:12 | Inpatient (IN) | payer MEDICARE, OTHER ==
[~2018-08-02] VITALS: Ht 180.3 cm; Wt 56.8 kg
[2018-08-02 10:07] VITALS: BP 103/68
[~2018-08-02 14:12] MED LIST changes: +CALC-157 PO; +CHOL2000 PO; +DENO120V SQ; +FURO-69 PO; +LEUP22.52 IM; +MULT1TAB52 PO
[2018-08-02] MEDS ORDERED: HYDROmorphone PF 1 MG/ML DISP.SYRIN IV PRN ×2 (14:30)
[2018-08-02] MEDS ORDERED: ACETAMINOPHEN 650 MG SUPP.RECT. PR PRN (14:30)
[2018-08-02] MEDS ORDERED: ONDANSETRON PF 4 MG/2 ML VIAL. IV PRN (14:30)
[2018-08-02] MEDS ORDERED: POLYVINYL ALCOHOL 1.4% OPHTH SOLUTION 15ML BOTTLE. OU PRN (14:30)
--- NOTE | 2018-08-03 14:58 | DS ---
DATE OF DISCHARGE: 08/02/2018 HOSPITAL COURSE: The patient is an 83-year-old male patient with advanced metastatic prostate cancer who was admitted with generalized weakness, anorexia, and inability to walk. He was started on IV fluid and developed sudden severe pain in his left ear and left jaw. We did a CT scan of the head and maxillofacial area with no finding. There was suspicion that he might have trigeminal neuralgia. However, we did also CT scan of the neck, which showed that there were diffuse patchy ____ change in cervical spine, greatest at C3, C4, C7, T1, T2. There was also aggressive osteolytic component of bone destruction, particularly at T1 on the right, which extends into the posterior elements, vertebral body height is fairly well maintained. Family decided comfort care and initially we continued IV fluid and pain medication, then we discontinued all aggressive treatment and started him on IV hydromorphone as well as Ativan. The patient's condition gradually deteriorated and the patient at around 5:00 in the afternoon on 08/02/2018, the patient has no spontaneous breathing, no pulsation or audible heart sound and was pronounced . The cause of is acute cardiopulmonary arrest, acute respiratory failure, metastatic prostate cancer. OSCAR MOSS MD DR: JANELLE/rene JOB#: [id number] / [id number]
[2018-08-05] MEDS ORDERED: SCOPOLAMINE 1.5MG PATCH. TD SCH (09:00)
== END 2018-08-02 18:55 | disposition expired | DRG 189 ==
LOC: 1 SOUTH 14:12
PROVIDERS: ADMIT Internal Medicine; ATTEND Internal Medicine
DX: J96.00 Acute respiratory failure, unspecified whether with hypoxia or hypercapnia (principal); C61 Malignant neoplasm of prostate; I46.9 Cardiac arrest, cause unspecified; Z51.5 Encounter for palliative care
CPT/HCPCS: J1170; J2060; Q5005